=== PATIENT | female | born 1965 | race Hispanic/Latino ===

== ENCOUNTER → 2023-12-05 06:37 | Day surgery (SDC) | payer BC, SELFPAY | LOC: GI 06:37 | PROVIDERS: ATTENDING PHYSICIAN Specialist | DX: Z12.11 Encounter for screening for malignant neoplasm of colon (principal); D12.5 Benign neoplasm of sigmoid colon; D17.5 Benign lipomatous neoplasm of intra-abdominal organs; K57.30 Diverticulosis of large intestine without perforation or abscess without bleeding | CPT/HCPCS: 45385; 45380; 88305 ==

== ENCOUNTER 2024-03-24 05:06 | Inpatient (IN) | payer BC, SELFPAY ==
[2024-03-24] VITALS (19 sets, daily range): BP systolic 115–163; BP diastolic 58–119; BMI 32.4
--- NOTE | 2024-03-24 03:06 | ED.GENMED ---
History of Present Illness
General
Chief Complaint: Chest Pain
Source: patient
Exam Limitations: none
Time Seen by Provider: 03/24/24 03:06
Nursing documentation reviewed up to this point in time: agreed with
History of Present Illness
History of Present Illness:
58-year-old female history of GERD hypertension hyperlipidemia presents with shortness of breath chest pain palpitation she was indigestion earlier tonight around 9 PM she passed out woke up sweaty came here through triage with complaints of
palpitations EKG showed inferior ST segment elevation immediately brought back STEMI alert was called
Past History
Past History
ED Past Medical History: Hypercholesterolemia and Other (migraines)
ED Past Surgical History: Cholecystectomy and Orthopedic; Negative Cardiac
Social History
Tobacco: Non-smoker
Alcohol: None
Drug: None
Personal:
Living: with family
Employment: Employed
Family History
Family History: CAD
Phy Exam
Physical Exam
Physical Exam:
Physical Exam
General: 58-year-old female mild to moderate distress
Neck: No jaundice
Heart: Tachycardic
Lungs: no acute respiratory distress. clear bilaterally
Abdomen: Not tender
Neuro: alert and oriented. no focal neurological deficits
Skin: no rash
Psychiatric: well kept. interactive and cooperative
Extremities: no edema. no calf tenderness.
Scores
Heart Score for Chest Pain Patients
STEMI patient?: Yes
Course
Orders/Labs/Results
Orders:
Orders
03/24/24 02:47
ECG [Electrocardiogram (*1)] Urgent
Reason for Study: Palpitations
EKG- Treatment ONCE
03/24/24 03:02
Complete Blood Count/With Diff Urgent
Troponin I Urgent
03/24/24 03:03
Comprehensive Metabolic Panel Urgent
PTT Urgent
Prothrombin Time Urgent
Abnormal Lab Results
03/24/24
03:02
WBC 11.7 H 10^3/uL
(4.8-10.8)
MCH 31.7 H pg
(27.0-31.0)
Absolute Neuts (auto) 9.7 H 10^3/uL
(1.4-6.5)
Neutrophils % 83.0 H %
(42.2-75.2)
Lymphocytes % 12.8 L %
(20.5-51.1)
03/24/24 03:02
Vital Signs
Initial and Last Documented VS:
Initial Vital Signs
Pulse Resp BP Pulse Ox
118 24 163/103 99
03/24/24 02:58 03/24/24 02:58 03/24/24 02:58 03/24/24 02:58
Last Documented Vital Signs
Temp Pulse Resp BP Pulse Ox
97.9 F 98 23 150/86 96
03/24/24 03:04 03/24/24 03:05 03/24/24 03:05 03/24/24 03:05 03/24/24 03:05
MDM/Problems Addressed
Differential Diagnosis Includes:
VT, LV aneurysm low clinical suspicion for PE or thoracic dissection
MDM/Problems Addressed:
Chest pain palpitations syncope
Chronic conditions affecting care:
Hyperlipidemia hypertension
Acute Exacerbation and/or Progression of Chronic Illness:
Hyperlipidemia
*Pulse Oximetry
Patient hypoxic: no
*EKG
Interpreted by ED Provider?: Yes
Interpretation: abnormal
Comparison EKG: no comparison EKG present
Heart Rate: 112
Rate: tachycardiac
Rhythm: sinus
Ischemia: ST elevation
*Grinding Wheel Operator Interpretation
Rate: tachycardiac
Interpretation: abnormal
Heart Rate: 110
Rhythm: sinus
*Critical Care Note
Total Time (30-74mins, 75-104mins- exclusive of procedures): 32
Data Reviewed
Source: patient and spouse
Update Note
Update Note:
Patient chest pain-free now history concerning for ST segment elevation with syncope
ED Attending Note
-
Portions of this chart may have been created with voice recognition software.� Occasional wrong word or��sound alike� substitutions may have occurred due to the inherent limitations of voice recognition software.
Discharge Plan
Departure
Patient Disposition: Admit
Date of Disposition: 03/24/24
Time of Disposition: 03:13
Presentation/result/management discussed w/ accepting MD/DO: justin lay
Condition: Serious
Discharge Problem:
Acute non-ST segment elevation myocardial infarction
Prescriptions:
No Action
Vitamins
pantoprazole 40 MG tablet,delayed release (DR/EC)
40 mg PO DAILY Qty: 30 0RF
Rx Instructions:
Take 30 minutes prior to breakfast
Referrals:
Mike Mar MD [Family Provider] -
Interventions
Interventions:
*Risk Screen - Suicide Last Done: 03/24/24 03:05
*General Assessment Last Done: 03/24/24 03:05
*Neglect/Abuse Screening Last Done: 03/24/24 03:05
ED- Cardiac Assessment Last Done: 03/24/24 03:08
Discharge Date and Time
Print Language: OMANI
[2024-03-24 03:09] LABS: % Basophils 0.4 % (0-2); % Eosinophils 0.3 % (0-6); % Immature Granulocytes 0.3 % (0-0.5); % Lymphocytes 12.8 % (20.5-51.1); % Monocytes 3.2 % (1.7-9.3); Absolute Basophils 0.1 10^3/uL (0-0.2); Absolute Lymphocytes 1.5 10^3/uL (1.2-3.4); Absolute Monocytes 0.4 10^3/uL (0.1-0.6); Absolute Neutrophils 9.7 10^3/uL (1.4-6.5); Hematocrit 39.7 % (37.0-47.0); Hemoglobin 13.9 g/dL (12.0-16.0); Mean Corpuscular Hgb 31.7 pg (27.0-31.0); Mean Corpuscular Volume 90.4 fL (81.0-99.0); Mean Platelet Volume 9.6 fL (7.4-10.4); Nucleated Red Blood Cells % 0 %; Platelet Count 297 10^3/uL (130-400); Red Blood Cell Count 4.39 10^6/uL (4.20-5.40); Red Cell Dist. Width 11.8 % (11.5-14.5); White Blood Cell Count 11.7 10^3/uL (4.8-10.8)
[2024-03-24 03:25] LABS: APTT 27.4 Sec (23.4-35.0)
[2024-03-24 03:28] LABS: ALT (SGPT) 31 U/L (0-35); AST (SGOT) 50 U/L (14-36); Albumin 4.9 g/dl (3.5-5.0); Alkaline Phosphatase 137 U/L (38-126); Blood Urea Nitrogen 21 mg/dl (7-17); Calcium 10.6 mg/dl (8.4-10.2); Carbon Dioxide 27 mmol/L (22-30); Chloride 98 mmol/L (98-107); Estimated Creatinine Clearance 81 ml/min; Glucose 196 mg/dl (70-99); Potassium 4.2 mmol/L (3.5-5.1); Sodium 137 mmol/L (135-145); Total Bilirubin 0.6 mg/dl (0.2-1.3); Total Protein 8.4 g/dl (6.3-8.2); eGFR > 60.00
[2024-03-24 03:45] LABS: Troponin I 0.635 ng/ml
[2024-03-24 03:52] LABS: ACT-LR - POC 202 Seconds (116-155)
[2024-03-24 04:01] LABS: ACT-LR - POC 290 Seconds (116-155)
[2024-03-24 04:39] LABS: ACT-LR - POC 268 Seconds (116-155)
--- NOTE | 2024-03-24 05:09 | ITS.CL.CATH ---
Addendum entered and electronically signed by Mike Longo MD 03/24/24 11:15:
Attending Addendum:
PROCEDURES: Inadvertently dictated intervention performed on the LAD. Coronary intervention was performed on the RCA NOT the LAD. Procedures should read as follows:
1. Left Heart catheterization with coronary and single-plane left ventriculography
2. Successful stenting of the proximal to mid RCA with overlapping 2.5 x 38 mm and 3.5 x 18 mm Xience stents that were implanted at nominal pressures and post dilated to high pressures with 3.0 mm noncompliant and 3.5 mm noncompliant balloons
Original Note:
Cell Technician - Catheterization
Cardiac Catheterization
Procedure Report:
LEFT HEART CATH AND CORONARY INTERVENTION
Date of Procedure: March 24, 2024
Referring: [facility] Emergency Department
PROCEDURES:
1. Left heart catheterization with coronary and single-plane left ventriculography
2. Successful stenting from the proximal to mid LAD with overlapping 2.5 x 38 mm and 3.5 x 18 mm Xience stents that were implanted at nominal pressures and postdilated to high pressures with 3.0 mm noncompliant and 3.5 mm noncompliant balloons
INDICATION: Evolving inferior ST segment elevation myocardial infarction
ACCESS: Right common femoral artery using ultrasound guidance and micropuncture
HEMODYNAMICS (mmHg):
AO (s/d, m) : 158/91
LV (s/d) : 161/6
LVEDP : 13
CORONARY FINDINGS
Dominance: Right
LEFT MAIN: Normal
LEFT ANTERIOR DESCENDING: The LAD arises normally from the left main running in the anterior intraventricular groove. The first diagonal branch arises proximally from the LAD and has a 60% ostial stenosis and 80% stenosis in the mid diagonal. The
LAD beyond the diagonal has a long 60-70% stenosis spanning a very small second diagonal branch. The third diagonal branch has a 70% proximal narrowing. The mid-distal LAD beyond the third diagonal branch has a long 60% stenosis
CIRCUMFLEX: The circumflex is a medium caliber nondominant vessel. The mid circumflex has a complex trifurcating 70% stenosis involving the origin of the large OM1 and OM2.
RIGHT CORONARY: 100% proximally occluded.
VENTRICULOGRAPHY: Left ventriculography is performed in ALEX projection. The digital single-plane left ventricular ejection fraction is estimated at 60%
ANGIOPLASTY PROCEDURE DETAIL: Upon review of the diagnostic catheterization films the decision was made to proceed with percutaneous revascularization of the 100% occluded right coronary artery. The patient received a 180 mg loading dose of
ticagrelor in the emergency department and 324 mg of aspirin. Intravenous heparin was administered throughout the procedure and the ACT was monitored and maintained within therapeutic limits. The origin of the right coronary artery was cannulated
with a 6 [place] JR4 guide catheter and a BMW guidewire crossed the occluded segment and was advanced into the distal vessel with a moderate degree of difficulty. Balloon predilation was performed with a 2.0 x 15 mm Trek balloon. Patient developed
transient bradycardia and hypotension with temple of antegrade flow treated with IV fluids and 0.3 mg of atropine. Angiography revealed multi segment atherosclerotic disease throughout the mid RCA. Additional balloon inflations were performed
with a 2.0 x 15 mm Trek balloon. The patient experienced chest heaviness and the angiographic result was felt to be suboptimal leading to a decision to proceed with stenting of the RCA with a 2.5 x 38 mm Xience stent that was implanted at nominal
pressures then postdilated with a 3.0 mm noncompliant balloon to high pressures. A proximal 50% stenosis persisted in the RCA and the decision was made to cover the segment with a 3.5 x 18 mm Xience stent which was positioned proximal to and
overlapping with the mid RCA stent. The proximal stent and the majority of the mid RCA was postdilated with a 3.5 mm noncompliant balloon with a nice angiographic result
RADIATION SUMMARY: Fluoro Time (min): 12.8, Dose (mGy): 1125, DAP (Gy.cm2) : 93.9
CONCLUSION:
1. Acute coronary syndrome with 100% occlusion of the proximal RCA successfully treated with placement of overlapping 2.5 x 38 mm and 3.5 x 18 mm Xience stents. The distal stented segment was postdilated to high pressures with a 3.0 mm
noncompliant balloon while the proximal and mid RCA was postdilated with a 3.5 mm noncompliant balloon to high pressures with a nice angiographic result
2. Residual diffuse coronary disease involving the mid LAD, first and second diagonal branch and trifurcation in the mid circumflex involving sizable OM1 and OM 2
3. Preserved LV systolic function
RECOMMENDATIONS
1. Trend serial troponin levels
2. Check hemoglobin A1c and fasting lipid profile
3. High intensity statin therapy and aggressive blood pressure control for goal blood pressure of 130/80 or less.
4. Will consult CT surgery to consider surgical revascularization in 1 month given LAD, diagonal, and bifurcating obtuse marginal atherosclerotic disease. If the patient is not felt to be a good surgical candidate could consider percutaneous
intervention
Copy to: Dr. Mike Mar
--- NOTE | 2024-03-24 06:04 | PTCARENOTE ---
Pt admitted to IVU ~0500 from experimental machining lab manager, HR SR. Pt belongings w/ pt. at bedside. Oriented pt to unit and educated on activity restrictions. Pt states understanding. At time of admit, pt denied any CP, SOB, or lightheadedness/dizziness.
Informed to notify RN if any changes.
~0550 pt had 23 beats of sustained VT followed by two 7 beat runs. During the 23 beat run, RN at bedside. Pt states she felt dizzy/lightheaded. BP 128/84.
[2024-03-24 06:48] LABS: HDL Cholesterol 51 mg/dl; LDL Cholesterol, Calculated 108 mg/dl; Total Cholesterol 175 mg/dl (50-199); Triglyceride 81 mg/dl (10-149); Very Low Density Lipoprotein 16 mg/dl (0-30)
--- NOTE | 2024-03-24 07:30 | PTCARENOTE ---
Assumed care of pt from prev nsg shift, AAOx3 w/no c/o CP or SOB. Pt bedrest until 0740 post cardiac cath. Pt verbalized awareness of restrictions. Pt's VS stable w/HR in the 80's & BP 135/93. Pt SR on telemetry monitoring. Pt w/R femoral site
w/dressing C/D/I, w/no signs or symptoms of bleeding or hematoma. Pt given CAD booklet & new CAD medication info sheet. Emotional support provided. Pt w/call lora within reach & no addtl needs at this time. Plan of care ongoing.
[2024-03-24 09:09] LABS: Glycohemoglobin (HgbA1c) 6.3 % (4.0-5.6)
[2024-03-24] MEDS: LOW STRENGTH ASPIRIN 81 MG PO (09:31)
[2024-03-24] MEDS: COREG 6.25 MG PO ×2 (09:31→19:34)
[2024-03-24] MEDS: PROTONIX 40 MG PO (09:32)
[2024-03-24] MEDS: ZESTRIL 10 MG PO (09:32)
--- NOTE | 2024-03-24 09:56 | W.PN.CARDCBS ---
Addendum entered and electronically signed by Esdras Bird MD 03/24/24 10:39:
I saw and examined the patient.
The Mirror Finishing Machine Operator's note was reviewed and I agree with the note.
Comment: Briefly, 58-year-old woman with HTN, HLD and family history of CAD presenting with discomfort she describes as acid reflux associated with dyspnea
Was found to have acute inferior ST elevation KS and underwent PCI of the proximal right circumflex earlier this morning
No further chest discomfort and breathing is comfortable
Does report intermittent palpitations, suspect this is related to AIVR/nonsustained VT seen on telemetry
No evidence of decompensated heart failure or mechanical complication of KS based on physical exam
Trend troponin to peak
Check echo
Continue to monitor on telemetry
Medical therapy with aspirin/Brilinta, high intensity statin and beta-vijay
Will ask for CT surgery input regarding potential surgical revascularization of her residual coronary disease
Original Note:
Today's Communication / Plan
-
post PCI RCA x2
continue post KS care
serial troponin, ECHO today
Impression / Plan
-
PCP: Mike Mar MD
CDY: None, Mike Longo MD
Impression:
Acute STEMI
post PCI RCA x 2 DIXIE
residual mid LAD, diagonal and LCX/OM disease
NSVT
HTN
HLD
GERD
Migraines
h/o hernia repair
h/o back surgery
Family hx CAD
CONCLUSION:
1. Acute coronary syndrome with 100% occlusion of the proximal RCA successfully treated with placement of overlapping 2.5 x 38 mm and 3.5 x 18 mm Xience stents. The distal stented segment was postdilated to high pressures with a 3.0 mm
noncompliant balloon while the proximal and mid RCA was postdilated with a 3.5 mm noncompliant balloon to high pressures with a nice angiographic result
2. Residual diffuse coronary disease involving the mid LAD, first and second diagonal branch and trifurcation in the mid circumflex involving sizable OM1 and OM 2
3. Preserved LV systolic function
Plan:
post PCI RCA x 2, mild stretch pain
continue post KS care
tele 32b VT, and NSVT post procedure
groin stable
serial troponin to peak
Echo today
DAPT ASA/Brilinta (CM to eval cost)
continue lisinopril, new start to carvedilol
LDL 108 will increase atorvastatin to 80mg daily
Check A1c
Cardiac rehab c/s
f/u DCA 2-4 weeks at d/c
residual LAD, LCx disease will be discussed with CT surgery 1 mo after recovery
continue to monitor closely on tele 48 hours
Progress Note - Junior Business Analyst
Subjective
Date of Service: March 24, 2024
no cp, sob, mild stretch pain not worse with activity
Objective
Labs:
03/24/24 03:02
03/24/24 03:03
Labs
Hgb 13.9 g/dL (12.0-16.0) 03/24/24 03:02
Hct 39.7 % (37.0-47.0) 03/24/24 03:02
Plt Count 297 10^3/uL (130-400) 03/24/24 03:02
PT 13.0 Sec (11.4-14.6) 03/24/24 03:03
INR 1.00 03/24/24 03:03
APTT 27.4 Sec (23.4-35.0) 03/24/24 03:03
Sodium 137 mmol/L (135-145) 03/24/24 03:03
Potassium 4.2 mmol/L (3.5-5.1) 03/24/24 03:03
BUN 21 mg/dl (7-17) H 03/24/24 03:03
Creatinine 0.7 mg/dL (0.6-1.0) 03/24/24 03:03
Glucose 196 mg/dl (70-99) H 03/24/24 03:03
Troponins
03/24/24 03/24/24 03/24/24
03:02 05:56 07:19
Troponin I 0.635 H* Cancelled 44.100 H* D
03/24/24 03/24/24
11:00 17:00
Troponin I Cancelled Cancelled
Vital Signs and I&O:
Vital Signs
Temp Pulse Resp BP Pulse Ox
98.4 F 83 16 135/93 97
03/24/24 07:47 03/24/24 08:00 03/24/24 07:47 03/24/24 07:48 03/24/24 07:48
Vital Signs
Temp Pulse Resp BP Pulse Ox
98.4 F 83 16 135/93 97
03/24/24 07:47 03/24/24 08:00 03/24/24 07:47 03/24/24 07:48 03/24/24 07:48
Physical Exam
Physical Exam
NAD, AOX3
S1, S2, RRR
CTAB, non labored
SNTND bsx4
R fem site c/d/i no HT, soft
--- NOTE | 2024-03-24 10:53 | CM ---
Chart reviewed. Patient is independent of ADLS, lives with her in a 2 [address], 1 [address], 0 DME. Plan is for the patient to return home. CM to follow
--- NOTE | 2024-03-24 10:54 | CM ---
Pricing on Brillinta is $12 a month through the patient's prescription plan. The patient qualifies for the $5 a month coupon. Patients [facility] does have it in stock. Placed the brillinta coupon in the patients red discharge folder.
--- NOTE | 2024-03-24 11:57 | CARDSERVLU ---
Echocardiogram with Lumason completed after protocol screening completed. Allergies verified.
Patent IV site: __existing 20 P LFA___
IV site flushed with 0.9% NaCl pre and post administration.
Diluted bolus method utilized to enhance visualization of ventricular haddad.
Total volume given: __3.5__ mL
Patient tolerated all procedures well without complications.
--- NOTE | 2024-03-24 14:16 | CONSULT.CT ---
Consultation
-
Date/Time Consultation Requested: 03/24/2024
Date/Time Consultation Performed: 03/24/2024
Requesting Provider: Dr. Lnogo
Performing Provider: Foreign gray
Reason for Consultation: CABG eval.
Patient History
Physicians
Family Physician: Mike Mar
Inpatient Range Ecologist: Mike Longo
History of Present Illness
Patient is a 58-year-old female with a strong family history of premature coronary artery disease and history of hyperlipidemia and hypertension. She presented to [facility] ED complaining of substernal chest pressure, squeezing and
palpitations. She described a sensation of her heart racing. She felt diaphoretic and fatigued. She also complained of feeling lightheaded. Symptoms started 5 to 6 hours prior to presentation and on arrival to the ED EKG was concerning for
evolving inferior wall myocardial infarction. STEMI alert was called and patient was emergently brought to the cardiac Rn Neurology where she underwent successful stenting of the proximal mid RCA with overlapping stents. Study revealed preserved LV
systolic function. There was residual diffuse coronary disease involving the mid LAD, first and second diagonal branches and trifurcation in the mid circumflex involving a sizable OM1 and OM 2.
Cardiothoracic surgery was consulted for surgical revascularization after her recovery in approximately 1 month for residual disease.
Plan at this point is to optimize medical therapy with high intensity statin therapy and aggressive blood pressure control.
Preoperative studies will be ordered.
All studies to be reviewed by attending cardiothoracic surgeon and will discuss surgical options and timing later this week.
Past Medical History
Past Medical History: Angina, Arrhythmias, CAD, Covid-19 (Admits to COVID infection x 2, patient reports receiving COVID-vaccine x 2 along with COVID booster), GONSALVES, HTN, Hypercholesterolemia, MO and SOB
Past Surgical History
Past Surgical History: Appendectomy, Cholecystectomy, ( x 2) and Orthopedic (Lumbar fusion in 2008 at [facility]/right leg fracture 1993 treated with external fixation)
Dental History
Reports routine dental exams no current dental issues
Family History
Mother: at Age (Mother at age 67 from congestive heart failure had a myocardial infarction and history of coronary artery disease)
Father: at Age (Father at age 64 history of hypertension and hyperlipidemia)
Family Medical History: Early CAD, CAD, Hypertension and Other
Social History
Alcohol: Occasional
Drug: None
Tobacco: Non-Smoker
Personal:
Living: With Spouse
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
Covid Vaccination History:
COVID-vaccine x 2, COVID booster
Allergies
Allergy/AdvReac Type Severity Reaction Status Date / Time
tetracycline [Tetracycline] Allergy nausea Verified 03/24/24 03:05
Home Medications
�Medication �Instructions �Recorded �Confirmed �Type
atorvastatin 10 mg tablet 10 mg PO DAILY 03/24/24 03/24/24 History
ibuprofen 600 mg tablet 600 mg PO PRN PRN pain 03/24/24 03/24/24 History
lisinopril 20 mg tablet 20 mg PO DAILY 03/24/24 03/24/24 History
multivitamin 1 tab PO DAILY 03/24/24 03/24/24 History
omega-3 fatty acids PO 03/24/24 History
vitamin B complex 1 tab PO DAILY 03/24/24 03/24/24 History
Review of Systems
-
History Source: Patient
General: Reports Fatigue
HEENT: Reports No Symptoms
Respiratory: Reports SOB and GONSALVES
Cardiac: Reports Chest Pain, CAD, Palpitations and Diaphoresis
Abdomen/GI: Reports No Symptoms
: Reports No Symptoms
Musculoskeletal: Reports Arthralgias
Skin: Reports No Symptoms
Neurological: Reports Syncope, Dizzy and Weakness
Vascular: Reports No Symptoms
Physical Exam
Vital Signs
Temp 98.3 F 03/24/24 11:50
Temp route: Oral 03/24/24 11:50
Pulse 86 03/24/24 12:00
Rhythm: Normal sinus rhythm 03/24/24 08:00
Resp Rate 18 03/24/24 11:50
Blood pressure 129/73 03/24/24 11:52
Blood pressure extremity used: Left upper arm 03/24/24 11:50
Position: Lying 03/24/24 11:50
MAP (cuff-Melly Monitor) 90 03/24/24 11:52
SaO2 97 03/24/24 11:50
Oxygen Mode of Delivery Room air 03/24/24 11:50
Can the patient verbally communicate their pain? Yes 03/24/24 08:00
Actual Weight 171 lb 8.314 oz 03/24/24 03:04
Body Mass Index (BMI) 0.0 03/24/24 05:28
Labs
03/24/24 03:02
03/24/24 03:03
PT 13.0 Sec (11.4-14.6) 03/24/24 03:03
APTT 27.4 Sec (23.4-35.0) 03/24/24 03:03
Hemoglobin A1c 6.3 % (4.0-5.6) H 03/24/24 05:56
Troponin I Cancelled 03/24/24 17:00
Exam
General: Well Developed, Well Nourished, No Apparent Distress and Comfortable
HEENT: Normocephalic, Anicteric and Atraumatic
Neck: Trachea Midline
Respiratory: Clear
Cardiac: Regular Rhythm
GI: Soft, Non Tender, Non Distended and Normal Bowel Sounds
Rectal: Deferred by Provider
Skin: Warm and Dry
Neuro: Awake, Alert, Oriented and AO x 3
Extremities: Pulses (Good distal pulses bilaterally 1-2+ dorsalis pedis pulses bilaterally, 1-2+ posterior tibial pulses bilaterally, feet warm, toes warm bilaterally)
Lymph: No Lymphadenopathy
Psych: Calm
Assessment / Plan
-
Assessment: acute inferior wall myocardial infarction status post RCA stenting x 2, residual diffuse coronary artery disease involving the mid LAD, first and second diagonal branch and trifurcation in the mid circumflex involving a sizable OM1 and
OM 2. Left ventricular systolic function preserved
Hypertension
Hyperlipidemia
Strong family history of coronary artery disease
Plan:
Continue to optimize medical therapy status post STEMI and RCA stenting
Will discuss with cardiology and cardiothoracic surgery teams regarding options of revascularization.
Preoperative studies ordered
[2024-03-24 15:31] LABS: ACT-LR - POC > 397 Seconds (116-155)
[2024-03-24] MEDS: LOVENOX SC (19:26)
[2024-03-24] MEDS: BRILINTA 90 MG PO (19:34)
[2024-03-24] MEDS: LIPITOR 80 MG PO (19:34)
--- NOTE | 2024-03-24 20:44 | PTCARENOTE ---
Pt's assessment unchanged from this RN's previous nursing assessment this AM. Pt reports feeling 'slight twinges' in her chest 'now & then', but no significant chest pain or chest pressure. Pt's VS stable w/HR in the 80's, BP 116/72. Pt continues to
be NSR on telemetry monitoring. Pt's R femoral access site w/dressing C/D/I w/no signs or symptoms of hematoma or bleeding. Plan of care ongoing.
[2024-03-25] VITALS (8 sets, daily range): BP systolic 96–117; BP diastolic 52–68
[2024-03-25] MEDS: TYLENOL 650 MG PO ×2 (02:09→20:36)
[2024-03-25 02:22] LABS: Hematocrit 32.7 % (37.0-47.0); Hemoglobin 11.6 g/dL (12.0-16.0); Mean Corp Hgb Conc. 35.5 g/dL (33.0-37.0); Mean Corpuscular Hgb 31.6 pg (27.0-31.0); Mean Corpuscular Volume 89.1 fL (81.0-99.0); Mean Platelet Volume 9.6 fL (7.4-10.4); Platelet Count 243 10^3/uL (130-400); Red Blood Cell Count 3.67 10^6/uL (4.20-5.40); Red Cell Dist. Width 12.1 % (11.5-14.5); White Blood Cell Count 10.4 10^3/uL (4.8-10.8)
[2024-03-25 02:46] LABS: Blood Urea Nitrogen 22 mg/dl (7-17); Calcium 9.5 mg/dl (8.4-10.2); Carbon Dioxide 28 mmol/L (22-30); Chloride 103 mmol/L (98-107); Estimated Creatinine Clearance 81 ml/min; Glucose 126 mg/dl (70-99); Potassium 4.2 mmol/L (3.5-5.1); Sodium 136 mmol/L (135-145); eGFR > 60.00
--- NOTE | 2024-03-25 04:28 | PTCARENOTE ---
Pt. has had no complaints of chest pain/discomfort overnight, VSS, NSR on the monitor. Right groin cath site dressing CDI without drainage or hematoma, right pedal pulse palpable. Medicated for right groin discomfort with Tylenol after which pt.
fell back to sleep.
--- NOTE | 2024-03-25 09:04 | W.PN.CARDCBS ---
Addendum entered and electronically signed by Esdras Bird MD 03/25/24 13:23:
I saw and examined the patient.
The Grocery Associate's note was reviewed and I agree with the note.
Comment: Briefly, 58-year-old woman presenting with acute inferior STEMI now status post drug-eluting stent to the RCA
She is resting comfortably in the IVU, has been chest pain-free
Telemetry with normal sinus rhythm, ventricular ectopy has been quiescent overnight
No evidence of mechanical complication of NH or decompensated heart failure based on exam
Continue medical management with aspirin/Brilinta, high intensity statin, beta-vijay, COURTNEY inhibitor
Ongoing evaluation by CT surgery regarding revascularization of her residual coronary disease
Discussed cardiac rehab
Would observe overnight, tentative discharge tomorrow 03/26/2024
Original Note:
Today's Communication / Plan
-
continue post NH care
Awaiting CT surgery input after testing completed
poss d/c home in the next 24 hours
Impression / Plan
-
PCP: Mike Mar MD
CDY: None, Mike Longo MD
Impression:
Acute inferior STEMI
post PCI RCA x 2 DIXIE
residual mid LAD, diagonal and LCX/OM disease
NSVT
HTN
HLD
GERD
Migraines
h/o hernia repair
h/o back surgery
Family hx CAD
CONCLUSION:
1. Acute coronary syndrome with 100% occlusion of the proximal RCA successfully treated with placement of overlapping 2.5 x 38 mm and 3.5 x 18 mm Xience stents. The distal stented segment was postdilated to high pressures with a 3.0 mm
noncompliant balloon while the proximal and mid RCA was postdilated with a 3.5 mm noncompliant balloon to high pressures with a nice angiographic result
2. Residual diffuse coronary disease involving the mid LAD, first and second diagonal branch and trifurcation in the mid circumflex involving sizable OM1 and OM 2
3. Preserved LV systolic function
Plan:
post PCI RCA x 2, feels better today 'less twinges'
continue post NH care
tele 7b NSVT last 03/24 10am
had groin pain last night, site stable, soft
troponin peaked at 73.8
Echo EF 55-60%, mild LVH, no sig WMA, mild MR/TR
DAPT ASA/Brilinta
continue lisinopril, new start to carvedilol
LDL 108 will increase atorvastatin to 80mg daily
A1c 6.3%, pre DM education provided
Cardiac rehab c/s
f/u DCA 2-4 weeks at d/c
CT surgery consult, preop testing, carotid u/s results pending, awaiting plan for residual LAD, LCx disease
continue to monitor closely on tele another 24 hours
Progress Note - Supervisor Cabinetmaker
Subjective
Date of Service: March 25, 2024
no cp, sob, mild groin pain o/n improved with tylenol
Objective
Labs:
03/25/24 02:17
03/25/24 02:17
Labs
Hgb 11.6 g/dL (12.0-16.0) L 03/25/24 02:17
Hct 32.7 % (37.0-47.0) L 03/25/24 02:17
Plt Count 243 10^3/uL (130-400) 03/25/24 02:17
PT 13.0 Sec (11.4-14.6) 03/24/24 03:03
INR 1.00 03/24/24 03:03
APTT 27.4 Sec (23.4-35.0) 03/24/24 03:03
Sodium 136 mmol/L (135-145) 03/25/24 02:17
Potassium 4.2 mmol/L (3.5-5.1) 03/25/24 02:17
BUN 22 mg/dl (7-17) H 03/25/24 02:17
Creatinine 0.7 mg/dL (0.6-1.0) 03/25/24 02:17
Glucose 126 mg/dl (70-99) H 03/25/24 02:17
Troponins
03/24/24 03/24/24 03/24/24
03:02 05:56 07:19
Troponin I 0.635 H* Cancelled 44.100 H* D
03/24/24 03/24/24 03/24/24
11:00 13:11 17:00
Troponin I Cancelled 73.500 H* D Cancelled
03/24/24 03/24/24 03/25/24
19:00 20:12 02:17
Troponin I Cancelled 73.800 H* 56.100 H*
Vital Signs and I&O:
Vital Signs
Temp Pulse Resp BP Pulse Ox
98.5 F 71 20 113/68 95
03/25/24 07:02 03/25/24 04:00 03/25/24 07:02 03/25/24 02:10 03/25/24 07:02
Vital Signs
Temp Pulse Resp BP Pulse Ox
98.5 F 71 20 113/68 95
03/25/24 07:02 03/25/24 04:00 03/25/24 07:02 03/25/24 02:10 03/25/24 07:02
Intake & Output
03/23/24 03/24/24 03/25/24 03/26/24
06:59 06:59 06:59 06:59
Intake Total 720 / 720
Balance 720 / 720
Physical Exam
Physical Exam
NAD, AOX3
S1, S2, RRR
CTAB, non labored
SNTND bsx4
R fem site c/d/i soft, dressing removed
[2024-03-25] MEDS: LOW STRENGTH ASPIRIN 81 MG PO (09:15)
[2024-03-25] MEDS: PROTONIX 40 MG PO (09:16)
[2024-03-25] MEDS: BRILINTA 90 MG PO ×2 (09:16→20:34)
[2024-03-25] MEDS: COREG 6.25 MG PO ×2 (09:28→20:34)
--- NOTE | 2024-03-25 09:44 | PN.DE ---
Diabetes Education
- -
03/25/2024: Diabetes Education Consult
Met with MS. Jaquez at bedside for prediabetes instructions. Current A1C of 6.3%.
Pt reports Hx of Gestational Diabetes and familial hx of T2DM in both her Mom and Grandmother.
Discussed current A1C abd average blood sugar of 120. Discussed importance of being active and encouraged physical activity. Emphasized need to reduce CHO intake and sugary drinks. Reviewed outpt prediabetes classes and provided information for
registration including cost of class to pt.
All questions were answered and Pt stated that she was interested in attending the next class that is scheduled in the fall.
--- NOTE | 2024-03-25 13:36 | W.PN.UPDATE ---
Update Note
Progress Note Update
Pt seen and examined
Cath, echo, carotid reviewed
Discussed earlier with Dr Longo
Long conversation with pt regarding recent LA/PCI, and significant residual left sided disease
I agree that cabg to om/om/ Lad -distally, as well as diagonal is best senior living treatment
Risks, complications, benefits and alternatives reviewed in detail
Plan for cabg following 4+wks of post LA/stent brillinta management
Will discuss with cards about stopping Brillinta preop as well as the ?? of preadmission IV anticoag once Brillinta is stopped
Pt appears to understan all
She wishes to proceed with cabg
I have offered her an office visit to further discuss and she feels comfortable setting up all plans prior to d/c.
--- NOTE | 2024-03-25 13:43 | W.PN.UPDATE ---
Update Note
Progress Note Update
STS RISK SCORE
Procedure Type:�Isolated CABG
PERIOPERATIVE OUTCOME ESTIMATE %
Operative Mortality 0.696%
Morbidity & Mortality 4.89%
Stroke 0.689%
Renal Failure 0.906%
Reoperation 1.56%
Prolonged Ventilation 2.74%
Deep Sternal Wound Infection 0.269%
Long Hospital Stay (>14 days) 1.94%
Short Hospital Stay (<6 days)* 61.8%
Clinical Summary
Planned Surgery: Isolated CABG, Elective, First cardiovascular surgery
Demographics: 58 year old, Other, female, 77.8kg, 155cm, BMI: 32.4 kg/m�
Lab Values: Creatinine: 0.7 mg/dL, Hematocrit: 32.7%, WBC Count: 10.4 10�/�L, Platelet Count: 778619 cells/�L
Substance Abuse: Never smoker, Alcohol use: 2-7 drinks/week
Risk Factors / Comorbidities: Hypertension, Family Hx of CAD
Cardiac Status: NYHA Class II
Coronary Artery Disease: 3 vessels diseased, STEMI, OR: > 21 Days
Valve Disease: Mild MR, Mild TR
Prev. Cardiac Interv: Previous PCI: At this facility, > 6 hours
[2024-03-25] MEDS: ZESTRIL PO (15:44)
[2024-03-25] MEDS: LOVENOX 40 MG SC (17:41)
[2024-03-25] MEDS: LIPITOR 80 MG PO (17:41)
--- NOTE | 2024-03-25 18:48 | PTCARENOTE ---
Pt resting in bed today post inferior NH, c/o fatigue with SBP's @104 all day, lisinopril held. Meme Dial NP aware. Pt denies any discomfort. Telemetry shows sinus rhythm, no ectopy noted.
[2024-03-26] VITALS (7 sets, daily range): BP systolic 72–122; BP diastolic 53–87
[2024-03-26 04:48] LABS: Hematocrit 33.7 % (37.0-47.0); Hemoglobin 11.7 g/dL (12.0-16.0); Mean Corp Hgb Conc. 34.7 g/dL (33.0-37.0); Mean Corpuscular Hgb 31.5 pg (27.0-31.0); Mean Corpuscular Volume 90.8 fL (81.0-99.0); Mean Platelet Volume 9.9 fL (7.4-10.4); Platelet Count 227 10^3/uL (130-400); Red Blood Cell Count 3.71 10^6/uL (4.20-5.40); White Blood Cell Count 8.4 10^3/uL (4.8-10.8)
[2024-03-26 05:27] LABS: Blood Urea Nitrogen 22 mg/dl (7-17); Calcium 9.8 mg/dl (8.4-10.2); Carbon Dioxide 30 mmol/L (22-30); Chloride 105 mmol/L (98-107); Estimated Creatinine Clearance 81 ml/min; Glucose 116 mg/dl (70-99); Potassium 4.3 mmol/L (3.5-5.1); Sodium 140 mmol/L (135-145); eGFR > 60.00
--- NOTE | 2024-03-26 05:36 | PTCARENOTE ---
VSS; NSR on the monitor overnight. Pt. chest pain free and hoping to go home today.
[2024-03-26 06:09] LABS: Hepatitis C Antibody Negative (Negative)
--- NOTE | 2024-03-26 07:46 | W.PN.UPDATE ---
Update Note
Progress Note Update
Patient seen this AM. Consent was obtained. Patient will have a follow up appointment on 04/19, PATs will be scheduled, and surgery date will be on 04/27/[address] Coelho
--- NOTE | 2024-03-26 08:29 | W.PN.CARDCBS ---
Addendum entered and electronically signed by LALITO Frias 03/26/24 15:55:
Pt u/s showed small 7mm PSA, IR attempted thrombin injection but with manual compression of u/s probe, PSA thrombosed. She will remain on BR 3 hours, we will repeat u/s in am and if stable plan to d/c home. Discussed this with pt and Dr. Bird
and all agree with plan.
Addendum entered and electronically signed by Esdras Bird MD 03/26/24 09:57:
I saw and examined the patient.
The Credit Control Manager's note was reviewed and I agree with the note.
Comment: Briefly, 58-year-old woman presenting with epigastric discomfort found to have acute inferior STEMI
Underwent PCI of the RCA with drug-eluting stent on 03/24/2024
Has remained chest pain-free
Telemetry is unremarkable
No evidence of decompensated heart failure or mechanical complication of MT based on physical exam
Reporting some discomfort at the femoral access site, will plan for vascular ultrasound this morning to further evaluate, but right lower extremity seems to be neurovascularly intact
Patient is also concerned for low blood pressures, at times 90s/60s
Will continue Coreg at 6.25 twice daily
Plan to cut lisinopril dose to 2.5 mg daily
Dual antiplatelet with aspirin/Brilinta and high intensity statin
Evaluated by CT surgery, plan for CABG in April to address residual LAD and left circumflex disease
Tentative discharge later today
Original Note:
Today's Communication / Plan
-
Groin u/s today to r/o PSA
Decrease lisinopril
CABG scheduled for 04/27, continue DAPT until 04/23 stop brilinta, continue Aspirin
Impression / Plan
-
PCP: Mike Mar MD
CDY: None, Mike Longo MD
Impression:
Acute inferior STEMI
post PCI RCA x 2 DIXIE
residual mid LAD, diagonal and LCX/OM disease
NSVT
HTN
HLD
GERD
Migraines
h/o hernia repair
h/o back surgery
Family hx CAD
CONCLUSION:
1. Acute coronary syndrome with 100% occlusion of the proximal RCA successfully treated with placement of overlapping 2.5 x 38 mm and 3.5 x 18 mm Xience stents. The distal stented segment was postdilated to high pressures with a 3.0 mm
noncompliant balloon while the proximal and mid RCA was postdilated with a 3.5 mm noncompliant balloon to high pressures with a nice angiographic result
2. Residual diffuse coronary disease involving the mid LAD, first and second diagonal branch and trifurcation in the mid circumflex involving sizable OM1 and OM 2
3. Preserved LV systolic function
Plan:
post PCI RCA x 2, feels good today, no cp
continue post MT care
tele no further NSVT seen on monitor
groin turpentine distiller, soft will check u/s to make sure no PSA
troponin peaked at 73.8
Echo EF 55-60%, mild LVH, no sig WMA, mild MR/TR
DAPT ASA/Brilinta
BP running low will decrease lisinopril to 5mg daily, continue carvedilol 6.25mg bid
LDL 108 will increase atorvastatin to 80mg daily
A1c 6.3%, pre DM education provided
Cardiac rehab c/s to begin after CT surgery
Plan for CABG 04/[address] Coelho, will stop Brilinta on 04/23 (5 days prior to surgery), continue ASA including day of surgery
CT office visit 04/19 with PAT's
f/u DCA 04/21 prior to surgery
if groin u/s neg plan for d/c home this afternoon
Progress Note - Medical Recruiter
Subjective
Date of Service: March 26, 2024
no cp, sob, groin still
Objective
Labs:
03/26/24 04:30
03/26/24 04:30
Labs
Hgb 11.7 g/dL (12.0-16.0) L 03/26/24 04:30
Hct 33.7 % (37.0-47.0) L 03/26/24 04:30
Plt Count 227 10^3/uL (130-400) 03/26/24 04:30
PT 13.0 Sec (11.4-14.6) 03/24/24 03:03
INR 1.00 03/24/24 03:03
APTT 27.4 Sec (23.4-35.0) 03/24/24 03:03
Sodium 140 mmol/L (135-145) 03/26/24 04:30
Potassium 4.3 mmol/L (3.5-5.1) 03/26/24 04:30
BUN 22 mg/dl (7-17) H 03/26/24 04:30
Creatinine 0.7 mg/dL (0.6-1.0) 03/26/24 04:30
Glucose 116 mg/dl (70-99) H 03/26/24 04:30
Troponins
03/24/24 03/24/24 03/24/24
03:02 05:56 07:19
Troponin I 0.635 H* Cancelled 44.100 H* D
03/24/24 03/24/24 03/24/24
11:00 13:11 17:00
Troponin I Cancelled 73.500 H* D Cancelled
03/24/24 03/24/24 03/25/24
19:00 20:12 02:17
Troponin I Cancelled 73.800 H* 56.100 H*
Vital Signs and I&O:
Vital Signs
Temp Pulse Resp BP Pulse Ox
98.8 F 74 20 110/53 100
03/26/24 07:40 03/26/24 04:24 03/26/24 07:40 03/26/24 04:24 03/26/24 07:40
Vital Signs
Temp Pulse Resp BP Pulse Ox
98.8 F 74 20 110/53 100
03/26/24 07:40 03/26/24 04:24 03/26/24 07:40 03/26/24 04:24 03/26/24 07:40
Intake & Output
03/24/24 03/25/24 03/26/24 03/27/24
06:59 06:59 06:59 06:59
Intake Total 720 / 720 240 / 240
Balance 720 / 720 240 / 240
Physical Exam
Physical Exam
NAD, AOX3
S1, S2, RRR
CTAB, non labored
SNTND bsx4
R fem site slight ecchymosis, mildly tender to palpation, slight firmness
[2024-03-26] MEDS: LOW STRENGTH ASPIRIN 81 MG PO (09:56)
[2024-03-26] MEDS: BRILINTA 90 MG PO ×2 (09:57→21:17)
[2024-03-26] MEDS: COREG 6.25 MG PO ×2 (09:57→21:17)
[2024-03-26] MEDS: PROTONIX 40 MG PO (09:57)
[2024-03-26] MEDS: ZESTRIL 5 MG PO (09:57)
--- NOTE | 2024-03-26 11:32 | CM ---
I called patient's [facility] and the Brilinta will be in later today.
--- NOTE | 2024-03-26 15:36 | W.PN.UPDATE ---
Update Note
Progress Note Update
- Attempted US guided thrombin injection of R groin PSA. Small 5 mm sac. We were able to get needle into the sac however no blood return. I suspect US guided compression helped to thrombose the PSA. Only a trickle of flow within the neck on final
images.
[2024-03-26] MEDS: LIPITOR 80 MG PO (18:38)
[2024-03-26] MEDS: LOVENOX 40 MG SC (18:38)
--- NOTE | 2024-03-26 19:49 | PTCARENOTE ---
Pt had U/S of right groin showing hematoma and 7mm pseudoaneurysm. Pt went to IRAD, no thrombin injection done , hematoma resolved with manual pressure, right groin site now soft and non tender. Pt kept on bedrest for 3 hours.
[2024-03-26] MEDS: DILAUDID 0.25 MG IV (21:12)
[2024-03-26] MEDS: FLUSH (NSS) 2 FLUSH IV (21:12)
[2024-03-26] MEDS: FLEXERIL 10 MG PO (21:49)
--- NOTE | 2024-03-27 03:34 | PTCARENOTE ---
Rec'd pt AAOx3 w/no c/o CP or SOB, however pt was c/o low back pain, which she initially rated at a 3-4/10 & reported as 'tolerable'. At approx 2039, pt was found to be pacing in her room, tearful, stating her pain was now a 7-8/10 w/back spasms &
'getting worse'. Pt asked for 'something other than Tylenol'. Pt stated she 'didn't get any relief from the Tylenol'. This RN contacted the cupola melter helper information resource consultant & spoke w/CT surgery MICHAEL, Cody Benedict. Orders rec'd for a stat 1X dose of IV Dilaudid for
the pt & PRN PO Flexeril. Meds administered to pt as ordered w/very good relief. 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 VS stable w/HR in the
70's-80's, most recent BP 110/67. Plan of care ongoing.
[2024-03-27 03:53] VITALS: BP 107/63
[2024-03-27 04:45] LABS: Hematocrit 30.2 % (37.0-47.0); Hemoglobin 10.5 g/dL (12.0-16.0); Mean Corp Hgb Conc. 34.8 g/dL (33.0-37.0); Mean Corpuscular Hgb 31.3 pg (27.0-31.0); Mean Corpuscular Volume 89.9 fL (81.0-99.0); Platelet Count 213 10^3/uL (130-400); Red Blood Cell Count 3.36 10^6/uL (4.20-5.40); White Blood Cell Count 8.4 10^3/uL (4.8-10.8)
[2024-03-27 04:57] LABS: Blood Urea Nitrogen 22 mg/dl (7-17); Calcium 9.2 mg/dl (8.4-10.2); Carbon Dioxide 27 mmol/L (22-30); Chloride 106 mmol/L (98-107); Estimated Creatinine Clearance 81 ml/min; Glucose 120 mg/dl (70-99); Potassium 4.2 mmol/L (3.5-5.1); Sodium 139 mmol/L (135-145); eGFR > 60.00
[2024-03-27 07:01] VITALS: BP 117/64
[2024-03-27] MEDS: LOW STRENGTH ASPIRIN 81 MG PO (09:05)
[2024-03-27] MEDS: ZESTRIL 5 MG PO (09:05)
[2024-03-27] MEDS: PROTONIX 40 MG PO (09:05)
[2024-03-27] MEDS: FLUSH (NSS) 1 FLUSH IV (09:05)
[2024-03-27] MEDS: COREG 6.25 MG PO (09:05)
[2024-03-27] MEDS: BRILINTA 90 MG PO (09:05)
--- NOTE | 2024-03-27 10:25 | PTCARENOTE ---
Received patient this morning resting in bed, slept later and feels much better now. Right groin is open to air, no edema noted and patient states it feels much better. Patient is ordered a repeat ultrasound of the right groin this morning.
[2024-03-27 11:38] VITALS: BP 107/60
--- NOTE | 2024-03-27 13:53 | W.PN.CARDCBS ---
Today's Communication / Plan
-
Stable for discharge from my perspective
Outpatient cardiology and CT surgery follow-up has been arranged
Impression / Plan
-
PCP: Mike Mar MD
CDY: None, Mike Longo MD
Impression:
Acute inferior STEMI
post PCI RCA x 2 DIXIE
residual mid LAD, diagonal and LCX/OM disease
NSVT
HTN
HLD
GERD
Migraines
h/o hernia repair
h/o back surgery
Family hx CAD
CONCLUSION:
1. Acute coronary syndrome with 100% occlusion of the proximal RCA successfully treated with placement of overlapping 2.5 x 38 mm and 3.5 x 18 mm Xience stents. The distal stented segment was postdilated to high pressures with a 3.0 mm
noncompliant balloon while the proximal and mid RCA was postdilated with a 3.5 mm noncompliant balloon to high pressures with a nice angiographic result
2. Residual diffuse coronary disease involving the mid LAD, first and second diagonal branch and trifurcation in the mid circumflex involving sizable OM1 and OM 2
3. Preserved LV systolic function
Plan:
post PCI RCA x 2, feels good today, no cp
continue post MD care
tele no further NSVT seen on monitor
PSA thrombosed, stable on repeat US
troponin peaked at 73.8
Echo EF 55-60%, mild LVH, no sig WMA, mild MR/TR
DAPT ASA/Brilinta
BP running low will decrease lisinopril to 5mg daily, continue carvedilol 6.25mg bid
LDL 108 will increase atorvastatin to 80mg daily
A1c 6.3%, pre DM education provided
Cardiac rehab c/s to begin after CT surgery
Plan for CABG 04/[address] Coelho, will stop Brilinta on 04/23 (5 days prior to surgery), continue ASA including day of surgery
CT office visit 04/19 with PAT's
DCA follow up arranged
Progress Note - Supervisor Functional Testing
Subjective
Date of Service: March 27, 2024
No acute overnight events. Groin pain has resolved following manual compression of pseudoaneurysm yesterday. No chest discomfort or shortness of breath. Normal sinus rhythm on telemetry.
Objective
Labs:
03/27/24 04:34
03/27/24 03:59
Labs
Hgb 10.5 g/dL (12.0-16.0) L 03/27/24 04:34
Hct 30.2 % (37.0-47.0) L 03/27/24 04:34
Plt Count 213 10^3/uL (130-400) 03/27/24 04:34
PT 13.0 Sec (11.4-14.6) 03/24/24 03:03
INR 1.00 03/24/24 03:03
APTT 27.4 Sec (23.4-35.0) 03/24/24 03:03
Sodium 139 mmol/L (135-145) 03/27/24 03:59
Potassium 4.2 mmol/L (3.5-5.1) 03/27/24 03:59
BUN 22 mg/dl (7-17) H 03/27/24 03:59
Creatinine 0.7 mg/dL (0.6-1.0) 03/27/24 03:59
Glucose 120 mg/dl (70-99) H 03/27/24 03:59
Troponins
03/24/24 03/24/24 03/24/24
13:11 19:00 20:12
Troponin I 73.500 H* D Cancelled 73.800 H*
03/25/24
02:17
Troponin I 56.100 H*
Vital Signs and I&O:
Vital Signs
Temp Pulse Resp BP Pulse Ox
98.4 F 75 18 107/60 98
03/27/24 11:40 03/27/24 11:38 03/27/24 11:40 03/27/24 11:38 03/27/24 11:40
Vital Signs
Temp Pulse Resp BP Pulse Ox
98.4 F 75 18 107/60 98
03/27/24 11:40 03/27/24 11:38 03/27/24 11:40 03/27/24 11:38 03/27/24 11:40
Intake & Output
03/25/24 03/26/24 03/27/24 03/28/24
06:59 06:59 06:59 06:59
Intake Total 720 / 720 240 / 240 900 / 900
Balance 720 / 720 240 / 240 900 / 900
Physical Exam
Physical Exam
Gen: NAD, AAOx3
HEENT: NC/AT, sclera anicteric
Neck: No JVD
CV: RRR, NL s1/s2, no M/R/G
Lungs: CTAB
Abd: S/ND
Ext: No LE edema, right femoral cath site with small hematoma but soft and right lower extremity neurovascularly intact
Skin: Warm, dry
Neuro: Non-focal
--- NOTE | 2024-03-27 14:14 | PTCARENOTE ---
Patient had right groin ultrasound this morning which is stable and ok for discharge.
--- NOTE | 2024-03-27 14:49 | PTCARENOTE ---
Reviewed discharge instructions and restrictions with the patient and she states her understanding. She is aware of follow up appointments, new prescriptions and changes to her current medications. Patient discharged home with her .
== END 2024-03-27 14:30 | disposition home or self-care (01) | DRG 322 ==
LOC: IVU 05:06
PROVIDERS: Nurse Practitioner Adult Health; ADMITTING PHYSICIAN Internal Medicine Interventional Cardiology; EMERGENCY PHYSICIAN Emergency Medicine; FAMILY PHYSICIAN Family Medicine; OTHER PHYSICIAN Thoracic Surgery (Cardiothoracic Vascular Surgery)
PROC: 027035Z Dilation of Coronary Artery, One Artery with Two Drug-eluting Intraluminal Devices, Percutaneous Approach (ICD-10-PCS; 2024-03-24)
PROC: B2151ZZ Fluoroscopy of Left Heart using Low Osmolar Contrast (ICD-10-PCS; 2024-03-24)
PROC: B2111ZZ Fluoroscopy of Multiple Coronary Arteries using Low Osmolar Contrast (ICD-10-PCS; 2024-03-24)
PROC: 4A023N7 Measurement of Cardiac Sampling and Pressure, Left Heart, Percutaneous Approach (ICD-10-PCS; 2024-03-24)
DX: I21.19 ST elevation (STEMI) myocardial infarction involving other coronary artery of inferior wall (principal); I47.20 Ventricular tachycardia, unspecified; I10 Essential (primary) hypertension; G43.909 Migraine, unspecified, not intractable, without status migrainosus; R73.03 Prediabetes; I25.10 Atherosclerotic heart disease of native coronary artery without angina pectoris; K21.9 Gastro-esophageal reflux disease without esophagitis; I72.4 Aneurysm of artery of lower extremity; E78.00 Pure hypercholesterolemia, unspecified; Z82.49 Family history of ischemic heart disease and other diseases of the circulatory system; Z86.16 Personal history of COVID-19; Z98.1 Arthrodesis status; Z88.1 Allergy status to other antibiotic agents
CPT/HCPCS: 36002; 76942; 80048; 80053; 80061; 83036; 84484; 85025; 85027; 85347; 85610; 85730; 86803; 93005; 93307; 93458; 93880; 93926; 99291; C1725; C1760; C1769; C1874; C1894; C9600; Q9957

== ENCOUNTER 2024-04-07 19:33 | Emergency (ER) | payer BC, SELFPAY ==
[2024-04-07 19:39] VITALS: BP 120/85
[2024-04-07 20:10] VITALS: BMI 33.8
[2024-04-07 20:48] LABS: % Basophils 0.5 % (0-2); % Eosinophils 3.7 % (0-6); % Immature Granulocytes 0.3 % (0-0.5); % Lymphocytes 27.5 % (20.5-51.1); % Monocytes 5.9 % (1.7-9.3); % Neutrophils 62.1 % (42.2-75.2); Absolute Eosinophils 0.3 10^3/uL (0-0.7); Absolute Lymphocytes 2.4 10^3/uL (1.2-3.4); Absolute Monocytes 0.5 10^3/uL (0.1-0.6); Absolute Neutrophils 5.4 10^3/uL (1.4-6.5); Hematocrit 33.5 % (37.0-47.0); Hemoglobin 11.9 g/dL (12.0-16.0); Mean Corp Hgb Conc. 35.5 g/dL (33.0-37.0); Mean Corpuscular Hgb 31.4 pg (27.0-31.0); Mean Corpuscular Volume 88.4 fL (81.0-99.0); Mean Platelet Volume 9.3 fL (7.4-10.4); Nucleated Red Blood Cells % 0 %; Platelet Count 330 10^3/uL (130-400); Red Blood Cell Count 3.79 10^6/uL (4.20-5.40); Red Cell Dist. Width 11.9 % (11.5-14.5); White Blood Cell Count 8.7 10^3/uL (4.8-10.8)
[2024-04-07 21:01] LABS: ALT (SGPT) 26 U/L (0-35); AST (SGOT) 32 U/L (14-36); Albumin 4.4 g/dl (3.5-5.0); Alkaline Phosphatase 110 U/L (38-126); Blood Urea Nitrogen 17 mg/dl (7-17); Calcium 10.2 mg/dl (8.4-10.2); Carbon Dioxide 24 mmol/L (22-30); Chloride 105 mmol/L (98-107); Glucose 147 mg/dl (70-99); Potassium 4.2 mmol/L (3.5-5.1); Sodium 138 mmol/L (135-145); Total Bilirubin 0.7 mg/dl (0.2-1.3); Total Protein 7.5 g/dl (6.3-8.2); eGFR > 60.00
[2024-04-07 21:32] LABS: TSH 2.81 uIU/ml (0.47-4.68)
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
[2024-04-07 21:44] VITALS: BP 152/94
[2024-04-07 22:00] VITALS: BP 141/73
== END 2024-04-07 22:41 | disposition home or self-care (01) ==
LOC: EMR 19:33
PROVIDERS: EMERGENCY PHYSICIAN Emergency Medicine; FAMILY PHYSICIAN Family Medicine
DX: R00.2 Palpitations (principal); R03.0 Elevated blood-pressure reading, without diagnosis of hypertension; I25.10 Atherosclerotic heart disease of native coronary artery without angina pectoris; E78.00 Pure hypercholesterolemia, unspecified; G43.909 Migraine, unspecified, not intractable, without status migrainosus; I25.2 Old myocardial infarction; Z90.49 Acquired absence of other specified parts of digestive tract; Z88.1 Allergy status to other antibiotic agents
CPT/HCPCS: 99283; 80053; 84443; 85025; 93005

== ENCOUNTER 2024-04-27 05:08 | Inpatient (IN) | payer OTHER, SELFPAY ==
[2024-04-21 11:28] VITALS: BMI 32.9
[2024-04-21 12:17] LABS: % Basophils 0.6 % (0-2); % Eosinophils 3.8 % (0-6); % Immature Granulocytes 0.3 % (0-0.5); % Lymphocytes 29.5 % (20.5-51.1); % Monocytes 8.3 % (1.7-9.3); % Neutrophils 57.5 % (42.2-75.2); Absolute Eosinophils 0.3 10^3/uL (0-0.7); Absolute Lymphocytes 2.1 10^3/uL (1.2-3.4); Absolute Monocytes 0.6 10^3/uL (0.1-0.6); Hematocrit 36.7 % (37.0-47.0); Hemoglobin 12.3 g/dL (12.0-16.0); Mean Corp Hgb Conc. 33.5 g/dL (33.0-37.0); Mean Corpuscular Hgb 31.1 pg (27.0-31.0); Mean Corpuscular Volume 92.9 fL (81.0-99.0); Mean Platelet Volume 10.1 fL (7.4-10.4); Nucleated Red Blood Cells % 0 %; Platelet Count 233 10^3/uL (130-400); Red Blood Cell Count 3.95 10^6/uL (4.20-5.40); Red Cell Dist. Width 11.9 % (11.5-14.5)
[2024-04-21 12:18] LABS: Urine Albumin Negative (Neg - Trace); Urine Bilirubin Negative (Negative); Urine Character Clear (Clear); Urine Color Yellow; Urine Glucose Negative (Negative); Urine Ketone Negative (Negative); Urine Leukocyte Negative (Negative); Urine Nitrite Negative (Negative); Urine Occult Blood Negative (Negative); Urine Specific Gravity 1.005 (<1.030); Urine Urobilinogen Negative (Neg - 1+)
[2024-04-21 12:26] LABS: PT 14.2 Sec (11.4-14.6)
[2024-04-21 12:27] LABS: APTT 31.3 Sec (23.4-35.0)
--- NOTE | 2024-04-21 12:38 | CM ---
Chart reviewed. Met with the patient in PAT. Patient is still working, independent of ADLS, lives with her in a 2 STH, 1 LAVON, 0 DME. Patient expressed concerns about lying flat with her chronic back pain, 2/2 back surgery. Patient is
going to bring her own ice pack. Reviewed preoperative and postoperative instructions and restrictions, along with showering guidelines. Gave patient 2 soaps. Patient is agreeable to a home visit by CT Transitional RN. Plan is for the patient to
return home with CT Transitional RN.
[2024-04-21 12:43] LABS: ALT (SGPT) 30 U/L (0-35); AST (SGOT) 29 U/L (14-36); Albumin 4.6 g/dl (3.5-5.0); Alkaline Phosphatase 103 U/L (38-126); Blood Urea Nitrogen 12 mg/dl (7-17); Calcium 10.2 mg/dl (8.4-10.2); Carbon Dioxide 26 mmol/L (22-30); Chloride 103 mmol/L (98-107); Direct Bilirubin 0.2 mg/dl (0.0-0.4); Estimated Creatinine Clearance 78 ml/min; Glucose 103 mg/dl (70-99); Sodium 139 mmol/L (135-145); Total Bilirubin 0.8 mg/dl (0.2-1.3); Total Protein 7.7 g/dl (6.3-8.2); eGFR > 60.00
[2024-04-27] VITALS (16 sets, daily range): BP systolic 77–132; BP diastolic 52–83; BMI 32.2
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
[2024-04-27] MEDS: BACTROBAN 2% OINTMENT 1 APPLIC NASAL ×2 (05:39→19:53)
[2024-04-27] MEDS: PROTONIX 40 MG PO (05:39)
[2024-04-27] MEDS: MAGNESIUM OXIDE 500 MG PO (05:39)
[2024-04-27] MEDS: LOPRESSOR 25 MG PO (05:39)
--- NOTE | 2024-04-27 05:48 | PTCARENOTE ---
Pt admitted to room 2265. Pt confirmed NPO status since midnight and 2 CHG soap showers at home. Weight and VS obtained. Pt clipped and cleaned w/ CHG wipes. Admission questions completed. Home medications confirmed. Pt oriented to room. Pt
introduced to the IS. Call lora within reach.
--- NOTE | 2024-04-27 06:36 | W.CVOR.SURPR ---
CVOR Surgeon Immed Pre Op
-
I have examined this patient prior to performance of the scheduled procedure.
The patient's condition is unchanged from the time of the dictated/written History and
Physical and the patient is able to undergo the scheduled procedure.
[2024-04-27 07:53] LABS: ACT+ - POC 87 Seconds (82-134)
[2024-04-27 07:57] LABS: B.E. - POC -2.7 mmol/L; Glucose - POC 125 mg/dl (65-99); HCO3 - POC 23 mmol/L (21-29); Hematocrit - POC 34 % PCV (37-47); Hemodilution- POC Yes; Hemoglobin Calculated - POC 11.5; Ionized Calcium - POC 1.24 mmol/L (1.12-1.27); PCO2 - POC 41 mmHg (35-45); PO2 - POC 440 mmHg (80-100); POC Comment PRE; Potassium - POC 3.8 mmol/L (3.6-5.0); Sodium - POC 144 mmol/L (135-145); pH - POC 7.35 (7.35-7.45)
[2024-04-27 08:24] LABS: Urine Albumin Negative (Neg - Trace); Urine Bilirubin Negative (Negative); Urine Character Clear (Clear); Urine Color Yellow; Urine Glucose Negative (Negative); Urine Ketone Negative (Negative); Urine Leukocyte Negative (Negative); Urine Nitrite Negative (Negative); Urine Occult Blood Trace (Negative); Urine Specific Gravity 1.005 (<1.030); Urine Urobilinogen Negative (Neg - 1+)
[2024-04-27 08:36] LABS: Urine White Cell None Seen /HPF (0-5)
--- NOTE | 2024-04-27 08:56 | CM ---
pt in OR today, cm to follow.
[2024-04-27 10:52] LABS: Glucose - POC 143 mg/dl (65-99); HCO3 - POC 26 mmol/L (21-29); Hematocrit - POC 22 % PCV (37-47); Hemodilution- POC Yes; Hemoglobin Calculated - POC 7.6; Ionized Calcium - POC 0.99 mmol/L (1.12-1.27); PCO2 - POC 34 mmHg (35-45); PO2 - POC 367 mmHg (80-100); POC Comment CPB; Sodium - POC 142 mmol/L (135-145)
[2024-04-27 11:14] LABS: B.E. - POC 1.7 mmol/L; Glucose - POC 165 mg/dl (65-99); HCO3 - POC 26 mmol/L (21-29); Hematocrit - POC 25 % PCV (37-47); Hemodilution- POC Yes; Hemoglobin Calculated - POC 8.6; PCO2 - POC 40 mmHg (35-45); PO2 - POC 442 mmHg (80-100); POC Comment WARM; Potassium - POC 3.8 mmol/L (3.6-5.0); Sodium - POC 143 mmol/L (135-145); pH - POC 7.43 (7.35-7.45)
[2024-04-27 11:42] LABS: ACT+ - POC 104 Seconds (82-134)
[2024-04-27 11:44] LABS: B.E. - POC -2.4 mmol/L; Glucose - POC 117 mg/dl (65-99); HCO3 - POC 23 mmol/L (21-29); Hematocrit - POC 25 % PCV (37-47); Hemodilution- POC Yes; Hemoglobin Calculated - POC 8.6; O2 Saturation %Calculated-POC 99.4 5 (92-96); PCO2 - POC 41 mmHg (35-45); PO2 - POC 168 mmHg (80-100); POC Comment POST; Potassium - POC 2.8 mmol/L (3.6-5.0); Sodium - POC 145 mmol/L (135-145); pH - POC 7.36 (7.35-7.45)
[2024-04-27 11:55] LABS: B.E. - POC -4.6 mmol/L; Glucose - POC 90 mg/dl (65-99); HCO3 - POC 21 mmol/L (21-29); Hematocrit - POC 24 % PCV (37-47); Hemodilution- POC Yes; Hemoglobin Calculated - POC 8.3; O2 Saturation %Calculated-POC 99.1 5 (92-96); PCO2 - POC 38 mmHg (35-45); PO2 - POC 142 mmHg (80-100); POC Comment POST; Potassium - POC 2.8 mmol/L (3.6-5.0); Sodium - POC 146 mmol/L (135-145); pH - POC 7.35 (7.35-7.45)
--- NOTE | 2024-04-27 12:11 | W.PN.CT.SURG ---
CT Surgery Operative Note
-
Pre-op Diagnosis: severe CAD
recent stemi with pci to RCA
Post-op Diagnosis: Same
Procedure: Cabg x 4
melgar - d2/lad
yhaaira- om/om
on pump
RSF
Primary Surgeon: Meliton
Assisting Surgeons: Foreign
Specimen: None
Cultures: None
Complications / Blood Loss: None
Findings: Buzz with preserved EF pre and post revasc, no new wma
good conduits
Severe cad- om's with good intraluminal diameter but severe cad
lad/diag small
[2024-04-27 12:41] LABS: Glucose - Point of Care 76 mg/dl (70-99)
[2024-04-27] MEDS: DILAUDID 0.5 MG IV ×2 (12:49→23:35)
[2024-04-27 12:50] LABS: Hematocrit 27.8 % (37.0-47.0)
--- NOTE | 2024-04-27 12:50 | W.PN.UPDATE ---
Update Note
Progress Note Update
58-year-old female was electively admitted on 04/27/2024 for CABG due to recent STEMI/triple-vessel coronary disease with recent drug-eluting stent to RCA
IV fluids: 1300
U.O.:� 650
UF:� 900
Blood:� none
Wires:� V-wires
Inotropes:� none
Pressors:� none
Sedatives:� Precedex
�
NEURO: sedated on Precedex, pupils +2mm B/L
RESP: #8OT @24cm> 550/60%/14/5. Lungs clear B/L. 1 mediastinal (35cc on arrival) and R/L pleural (35cc on arrival) chest tubes to -20cm suction. Sanguineous drainage
CV: RRR +S1, S2, no S3, no�rub, no murmur. Dermabond to median sternotomy. RIJ w/slick
ABD: round, soft, no BS
EXT: no edema, +2/4 DP pulses B/L, no femoral bruit, left radial A-line intact
: Irwin with clear yellow urine
�
A/P: POD #0 s/p CABG x 4 BARBA-LAD & Diag in sequence. Free CHERELLE Y'd from BARBA-LCx & OM
VIMAL: EF�50-55%. Trace TR, mild-moderate MR. Small PFO with L>R shunt
- wean and extubate
# CAD w/recent STEMI & DIXIE>RCA (03/24/24)
- start Plavix tonight per Dr. Coelho (was on Brillinta @ home)
-will require ASA, statin, beta-vijay, ACEI
�
# acute surgical blood loss anemia-expected
- trend CBC
�
�
# Pre-diabetes (A1C 6.3)
- insulin infusion x 24h
- may need correctional SSI after indulin infusion completed
�
[2024-04-27 12:53] LABS: B.E. -3.8 mmol/L; HCO3 20.4 mmol/L (21-28); O2 Saturation % 99.1 % (94-98); PCO2 33 mmHg (32-35); PO2 138 mmHg (83-108); Potassium 4.1 mMOL/L (3.5-5.1); Sodium 141 mMOL/L (136-145)
--- NOTE | 2024-04-27 12:56 | PTCARENOTE ---
Received pt from [facility] at 1230; pt intubated and sedated; NSR on monitor and vSS; RIJ Cordis/SLIC, Left A-line and PIV x1 all lines leveled and zeroed; Levo, Insulin and Precedex infusing see flow sheet for details; Lungs diminished; SIMV
60%/550/14/5, ET tube 8@22 lip; CT x3 to -20 wall suction no air leak and no crepitus noted; hypoactive bowel sounds; Irwin catheter draining clear yellow urine; palpable pulses throughout; no edema noted; all surgical sites C/D/I; see nursing
documentation for further details.
--- NOTE | 2024-04-27 13:04 | W.PN.CARDCBS ---
Addendum entered and electronically signed by Dave Mcgee DO 04/27/24 13:31:
I saw and examined the patient.
The Office Assistance's note was reviewed and I agree with the note.
Comment:
Plan:
Cont post op care
Cont s/p CABGx4 BARBA-D2/LAD, CHERELLE-OM/OM, on pump 04/27/24
Wean vent as per protocol.
Was on ASA, Brilinta preop given recent STEMI with RCA PCI. Resume DAPT post op once ok per surgery
Discussed with nursing
Original Note:
Today's Communication / Plan
-
continue post op care
Impression / Plan
-
Primary Salt Refiner: Dr. Longo
Assessment:
CAD with inferior STEMI s/p PCI RCA x 2 DIXIE 03/24/24 with residual mid LAD, diagonal and LCX/OM disease by cath, now s/p CABGx4 BARBA-D2/LAD, CHERELLE-OM/OM, on pump 04/27/24
NSVT
HTN
HLD
GERD
Migraines
h/o hernia repair
h/o back surgery
Family hx CAD
ECHO 03/24/2024: EF 55 to 60%, mild concentric LVH, mild MR, mild TR, PAP 22 mmHg
Plan:
-s/p CABGx4 BARBA-D2/LAD, CHERELLE-OM/OM, on pump 04/27/24
-intubated, sedated. beginning to awaken
-on greg hugger
-off pressors
-post op EKG SR with evidence of prior inferior infarct
-hgb pending post op
-continue post op care
-was on asa, brilinta preop given recent STEMI with RCA PCI. will need to resume DAPT post op when ok per surgery
-was on coreg 6.25mg BID, lisinopril 5mg daily, lipitor 80mg QPM
-d/w nursing
Progress Note - Salt Refiner
Subjective
Date of Service: April 27, 2024
intubated, sedated.
Objective
Labs:
Labs
Hgb 12.3 g/dL (12.0-16.0) 04/21/24 11:40
Hct 36.7 % (37.0-47.0) L 04/21/24 11:40
Plt Count 233 10^3/uL (130-400) 04/21/24 11:40
PT 14.2 Sec (11.4-14.6) 04/21/24 11:40
INR 1.10 04/21/24 11:40
APTT 31.3 Sec (23.4-35.0) 04/21/24 11:40
Sodium 139 mmol/L (135-145) 04/21/24 11:40
Potassium 4.0 mmol/L (3.5-5.1) 04/21/24 11:40
BUN 12 mg/dl (7-17) 04/21/24 11:40
Creatinine 0.7 mg/dL (0.6-1.0) 04/21/24 11:40
Glucose 103 mg/dl (70-99) H 04/21/24 11:40
Vital Signs and I&O:
Vital Signs
Temp Pulse Resp BP Pulse Ox
95.6 F L 67 14 132/69 100
04/27/24 13:02 04/27/24 13:00 04/27/24 13:02 04/27/24 05:25 04/27/24 13:02
Vital Signs
Temp Pulse Resp BP Pulse Ox
95.6 F L 67 14 132/69 100
04/27/24 13:02 04/27/24 13:00 04/27/24 13:02 04/27/24 05:25 04/27/24 13:02
Intake & Output
04/25/24 04/26/24 04/27/24 04/28/24
07:59 07:59 07:59 07:59
Intake Total 29.4 / 29.4
Output Total 300 / 300
Balance -270.6 / -270.6
Physical Exam
Physical Exam
GEN: No distress, intubated, sedated. opening eyes
HEENT: supple, anicteric, mmm
LUNGS: CTA B/L, no wheezes/rales
CV: Reg, S1/S2, no murmur
EXT: No cyanosis, clubbing, edema
NEURO: sedated
SKIN: Warm, pink, dry. No rash. Sternotomy incision c/d/i. CTs in place. temp wire in place
[2024-04-27 13:05] LABS: INR 1.61
[2024-04-27 13:06] LABS: APTT 31.8 Sec (23.4-35.0)
[2024-04-27 13:11] LABS: Hemoglobin 9.7 g/dL (12.0-16.0); Platelet Count 168 10^3/uL (130-400)
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
[2024-04-27 13:22] LABS: Blood Urea Nitrogen 14 mg/dl (7-17); Estimated Creatinine Clearance 90 ml/min; Glucose 67 mg/dl (70-99); Magnesium 2.4 mg/dl (1.6-2.3)
[2024-04-27] MEDS: NEURONTIN PO ×3 (13:39→21:18)
[2024-04-27] MEDS: ANCEF 10 IV ×2 (13:40)
[2024-04-27] MEDS: NSS 500 IV (13:40)
[2024-04-27] MEDS: TYLENOL PO ×2 (13:40→21:18)
[2024-04-27 14:02] LABS: Glucose - Point of Care 203 mg/dl (70-99)
--- NOTE | 2024-04-27 14:25 | PTCARENOTE ---
Respiratory at bedside and pt placed on CPAP.
[2024-04-27 14:58] LABS: Glucose - Point of Care 171 mg/dl (70-99)
[2024-04-27 15:01] LABS: HCO3 22.6 mmol/L (21-28); Ionized Calcium 1.32 mMOL/L (1.15-1.33); O2 Saturation % 99.2 % (94-98); PCO2 47 mmHg (32-35); PO2 140 mmHg (83-108); Potassium 3.7 mMOL/L (3.5-5.1); Sodium 143 mMOL/L (136-145); pH 7.29 (7.35-7.45)
[2024-04-27] MEDS: KCL 50 IV (15:07)
--- NOTE | 2024-04-27 15:10 | PTCARENOTE ---
ABGs reviewed with CV PRODUCT TRAINER respiratory at bedside and pt extubated at 1508.
[2024-04-27] MEDS: OFIRMEV 100 IV (15:43)
[2024-04-27] MEDS: LR 250 IV (15:44)
[2024-04-27 15:52] LABS: B.E. -5.1 mmol/L; HCO3 21.2 mmol/L (21-28); PCO2 44 mmHg (32-35); PO2 169 mmHg (83-108); pH 7.29 (7.35-7.45)
[2024-04-27 15:58] LABS: Glucose - Point of Care 123 mg/dl (70-99)
[2024-04-27] MEDS: PACERONE PO (16:12)
[2024-04-27 16:16] LABS: Hematocrit 26.5 % (37.0-47.0); Hemoglobin 9.3 g/dL (12.0-16.0); Platelet Count 191 10^3/uL (130-400)
[2024-04-27 17:16] LABS: Glucose - Point of Care 91 mg/dl (70-99)
[2024-04-27] MEDS: LIPITOR PO (17:40)
[2024-04-27] MEDS: LOW STRENGTH ASPIRIN 81 MG PO (18:00)
[2024-04-27] MEDS: PLAVIX 75 MG PO (18:00)
[2024-04-27] MEDS: TORADOL 15 MG IV (18:13)
[2024-04-27 18:16] LABS: B.E. -3.6 mmol/L; HCO3 21.5 mmol/L (21-28); O2 Saturation % 99.7 % (94-98); PCO2 38 mmHg (32-35); PO2 164 mmHg (83-108); pH 7.36 (7.35-7.45)
[2024-04-27 19:08] LABS: Glucose - Point of Care 106 mg/dl (70-99)
[2024-04-27] MEDS: SODIUM BICARBONATE 50 MEQ IV (19:52)
[2024-04-27] MEDS: ANCEF 5 IV (19:52)
[2024-04-27] MEDS: SENOKOT-S PO (19:53)
--- NOTE | 2024-04-27 20:01 | PTCARENOTE ---
NSR on monitor and vSS; pt resting comfortably in bed; assessment unchanged.
[2024-04-27 21:19] LABS: Glucose - Point of Care 101 mg/dl (70-99)
[2024-04-27] MEDS: PACERONE 200 MG PO (21:21)
[2024-04-27] MEDS: MYLICON 80 MG PO (21:35)
--- NOTE | 2024-04-27 23:00 | PTCARENOTE ---
report received from previous RN, walking rounds done, assumed care of pt. pt in bed, AAOx4. pt c/o 10/ sternal incision pain, PRN dilaudid given IVP. NSR on monitor, HR 70's-80's. B/L radial and DP pulses palpable. heart tones clear. epicardial
wires intact and set to off. LT radial art line intact, SBP 90's-110's. RIJ cordis + SLIC intact w KVOs infusing. B/L breath sounds present. POX 96-97% on 2LNC. IS encouraged. CT x3 intact to -20cm wall suction, drainage WNL, no air leak present.
hsu catheter intact, draining CYU. UO adequate. hypoactive bowel sounds present. pt tolerating ice. Insulin gtt infusing per glycemic protocol. all surgical sites stable. turning/repositioning pt Q2H and as needed. see worklist for full
assessment, VS, and interventions. pt resting comfortably.
[2024-04-27 23:45] LABS: Glucose - Point of Care 90 mg/dl (70-99)
[2024-04-28] VITALS (27 sets, daily range): BP systolic 83–106; BP diastolic 43–73; PULSE 73; O2SAT 98–100; BMI 32.6; BMI 32.9
[2024-04-28] MEDS: SODIUM BICARBONATE 50 MEQ IV (00:08)
[2024-04-28 02:07] LABS: Glucose - Point of Care 100 mg/dl (70-99)
[2024-04-28 02:17] LABS: Hematocrit 23.8 % (37.0-47.0); Hemoglobin 8.6 g/dL (12.0-16.0); Mean Corp Hgb Conc. 36.1 g/dL (33.0-37.0); Mean Corpuscular Hgb 32.1 pg (27.0-31.0); Mean Corpuscular Volume 88.8 fL (81.0-99.0); Mean Platelet Volume 10.2 fL (7.4-10.4); Platelet Count 167 10^3/uL (130-400); Red Blood Cell Count 2.68 10^6/uL (4.20-5.40); Red Cell Dist. Width 12.4 % (11.5-14.5); White Blood Cell Count 13.2 10^3/uL (4.8-10.8)
[2024-04-28 02:26] LABS: INR 1.31; PT 16.1 Sec (11.4-14.6)
[2024-04-28] MEDS: DILAUDID 0.5 MG IV ×2 (02:47→20:21)
[2024-04-28 02:53] LABS: Glucose - Point of Care 89 mg/dl (70-99)
--- NOTE | 2024-04-28 03:00 | PTCARENOTE ---
no acute changes in assessment. pt oriented x4. sternal incision pain managed with PRN dilaudid. NSR 70's. normotensive. POX 95-96% on 2LNC. CT output and UO WNL. Insulin gtt maintained. all surgical sites stable. AM labs drawn and sent. EKG
completed. pt resting between care.
[2024-04-28 03:04] LABS: Blood Urea Nitrogen 19 mg/dl (7-17); Calcium 8.5 mg/dl (8.4-10.2); Carbon Dioxide 26 mmol/L (22-30); Chloride 113 mmol/L (98-107); Estimated Creatinine Clearance 90 ml/min; Glucose 88 mg/dl (70-99); Potassium 3.7 mmol/L (3.5-5.1); Sodium 144 mmol/L (135-145); eGFR > 60.00
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
[2024-04-28] MEDS: ANCEF 5 IV ×2 (04:07→11:34)
[2024-04-28] MEDS: KCL 40 MEQ PO (04:07)
[2024-04-28 04:11] LABS: Glucose - Point of Care 100 mg/dl (70-99)
[2024-04-28 04:47] LABS: Glucose - Point of Care 82 mg/dl (70-99)
[2024-04-28 06:12] LABS: Glucose - Point of Care 106 mg/dl (70-99)
[2024-04-28] MEDS: TYLENOL 1000 MG PO ×3 (06:19→22:17)
--- NOTE | 2024-04-28 07:33 | W.PN.ANS.POP ---
Anesthesia Post Operative
- Anesthesia Post Op Note
Vital Signs Stable-See Nursing Note: Yes
Airway Patent: Yes
Adequate Pain Control: Yes
Change in Mental Status: No
Current Postoperative Nausea & Vomiting: No
Anesthesia Complications: No
General Anesthetic Recall: No
Unplanned Admission: No
Post Op Hydration Adequate: Yes
[2024-04-28] MEDS: ULTRAM 50 MG PO (07:47)
[2024-04-28] MEDS: NEURONTIN 100 MG PO ×3 (07:48→22:17)
[2024-04-28 07:55] LABS: Glucose - Point of Care 80 mg/dl (70-99)
[2024-04-28] MEDS: NOVOLIN R INSULIN INFUSION 100 IV (09:08)
[2024-04-28] MEDS: PROTONIX 40 MG PO (09:32)
[2024-04-28] MEDS: BACTROBAN 2% OINTMENT 1 APPLIC NASAL ×2 (09:32→20:19)
[2024-04-28] MEDS: PACERONE 200 MG PO ×3 (09:32→22:17)
[2024-04-28] MEDS: MAGNESIUM OXIDE 500 MG PO ×2 (09:32→20:24)
[2024-04-28] MEDS: FEOSOL 325 MG PO (09:32)
[2024-04-28] MEDS: LOW STRENGTH ASPIRIN 81 MG PO (09:32)
[2024-04-28] MEDS: LIDOCAINE 4% PATCH 1 PATCH TOPICAL (09:33)
[2024-04-28] MEDS: PLAVIX 75 MG PO (09:33)
[2024-04-28] MEDS: SENOKOT-S 1 TABLET PO ×2 (09:33→20:24)
[2024-04-28] MEDS: VITAMIN C 500 MG PO (09:33)
--- NOTE | 2024-04-28 09:50 | PTCARENOTE ---
Report received from LUISA Castellanos at 0700. Pt assessed. Neuro intact x 4. Speech clear. Moves all extremities equally x 4. C/O sternal pain 6/10. Tramadol 50 mg po given. 2L/NC. Sats 94-97%. BBS present. Decreased to B bases. Mediastinal CT d/c'ed per
protocol. R and L CT placed to bulb suction. Vaseline gauze placed to L pleural tube to maintain suction. SSG drainage present. LOW Carrero aware. V wire insulated per protocol. Site cleansed with CHG. Sternal incision site well approximated. No
signs of infection. Belly soft, hypoactive bowel sounds x 4. Pulses +2 to B radials, B DP and PTs.
Pt helped with 2 RNs to standing. + lightheadedness. Pt weighed on standing scale and helped to recliner chair. BP 83/51. Given po fluids. BP up to 95/56. Pt feeling much better after fluid intake. Pt's sister visiting. Lidocaine patch to lower back
for c/o chronic back pain. Pt reports + relief to sternal incision. Glycemic protocol followed. Pt on insulin gtt per protocol.
--- NOTE | 2024-04-28 10:00 | PTCARENOTE ---
Mediastinal chest tube d/c'd as ordered, patient tolerated well. R and L pleural chest tubes placed to bulb evacuators - L pleural noted to be slowly losing suction. Addl vaseline gauze utilized, ANTONINA Manfred notified and to bedside.
[2024-04-28 10:02] LABS: Glucose - Point of Care 90 mg/dl (70-99)
[2024-04-28] MEDS: NSS IV (10:22)
[2024-04-28 10:40] LABS: ACT+ - POC > 1003 Seconds (82-134)
[2024-04-28 10:40] LABS: ACT+ - POC > 1003 Seconds (82-134)
[2024-04-28 10:40] LABS: ACT+ - POC > 1003 Seconds (82-134)
[2024-04-28] MEDS: LASIX 20 MG IV (11:34)
[2024-04-28] MEDS: FLEXERIL 5 MG PO (11:35)
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
[2024-04-28 11:59] LABS: Glucose - Point of Care 117 mg/dl (70-99)
--- NOTE | 2024-04-28 12:08 | PTCARENOTE ---
Lasix 20 mg IV given per order. Pt helped up to void with 2 RNs. BP maintained 90's/50's. Reports feeling well, no c/o lightheadedness. Pt voided 25 mls of clear, yellow urine. Helped back to chair. Bladder scanned for [address] L [address]
bulb emptied for 25 mls. Cardiac Rehab in to see pt.
--- NOTE | 2024-04-28 13:13 | W.PN.CARDCBS ---
Addendum entered and electronically signed by Gwyn Woods MD 04/28/24 13:50:
I saw and examined the patient.
The NET REPAIRER or PA's note was reviewed and I agree with the note.
Comment: General: Well developed, well nourished in NAD.
Neck: Supple, no JVD, HJR, carotids +2 B/L, no bruits bilaterally.
Heart: Non displaced PMI, RRR, no murmurs, No S3, S4, no rubs.
Lungs: Scattered rhonchi
Stable dressings noted
Extremities: No clubbing, cyanosis or edema bilaterally.
Neuro: Grossly nonfocal, awake, alert and oriented x3.
Stable cardiology status status post CABG. Remains in sinus rhythm.
Original Note:
Today's Communication / Plan
-
continue post op care
follow EKG
Impression / Plan
-
Primary Dogger: Dr. Longo
Assessment:
CAD with inferior STEMI s/p PCI RCA x 2 DIXIE 03/24/24 with residual mid LAD, diagonal and LCX/OM disease by cath, now s/p CABGx4 BARBA-D2/LAD, CHERELLE-OM/OM, on pump 04/27/24
NSVT
HTN
HLD
GERD
Migraines
h/o hernia repair
h/o back surgery
Family hx CAD
ECHO 03/24/2024: EF 55 to 60%, mild concentric LVH, mild MR, mild TR, PAP 22 mmHg
Plan:
-s/p CABGx4 BARBA-D2/LAD, CHERELLE-OM/OM, on pump 04/27/24
-reports feeling tired. some pain with deep breaths.
-follow hgb, 8.6 on 04/28. was on asa, brilinta preop given recent STEMI with RCA PCI. now on asa, plavix
-follow BPs, soft but stable. AM lopressor held.
-EKG 04/28 with possible pericarditis vs early repol, follow
-in SR on review of tele overnight. continue amiodarone
-continue post op care
-was on coreg 6.25mg BID, lisinopril 5mg daily, lipitor 80mg QPM prior to admission
-d/w nursing
Progress Note - Dogger
Subjective
Date of Service: April 28, 2024
reports feeling tired, with some pleuritic pain
Objective
Labs:
04/28/24 02:02
04/28/24 02:02
Labs
Hgb 8.6 g/dL (12.0-16.0) L 04/28/24 02:02
Hct 23.8 % (37.0-47.0) L 04/28/24 02:02
Plt Count 167 10^3/uL (130-400) 04/28/24 02:02
PT 16.1 Sec (11.4-14.6) H 04/28/24 02:02
INR 1.31 04/28/24 02:02
APTT 31.8 Sec (23.4-35.0) 04/27/24 12:38
Sodium 144 mmol/L (135-145) 04/28/24 02:02
Potassium 3.7 mmol/L (3.5-5.1) 04/28/24 02:02
BUN 19 mg/dl (7-17) H 04/28/24 02:02
Creatinine 0.6 mg/dL (0.6-1.0) 04/28/24 02:02
Glucose 88 mg/dl (70-99) 04/28/24 02:02
Vital Signs and I&O:
Vital Signs
Temp Pulse Resp BP Pulse Ox
99 F 73 16 95/49 100
04/28/24 08:00 04/28/24 13:02 04/28/24 12:00 04/28/24 13:02 04/28/24 12:00
Vital Signs
Temp Pulse Resp BP Pulse Ox
99 F 73 16 95/49 100
04/28/24 08:00 04/28/24 13:02 04/28/24 12:00 04/28/24 13:02 04/28/24 12:00
Intake & Output
04/26/24 04/27/24 04/28/24 04/29/24
07:59 07:59 07:59 07:59
Intake Total 690.5 / 700.7 313.6 / 313.6
Output Total 1655 / 1655 90 / 90
Balance -964.5 / -954.3 223.6 / 223.6
Physical Exam
Physical Exam
GEN: No distress, awake, alert, oriented x3
HEENT: supple, anicteric, mmm, eomi
LUNGS: Decreased BS B/L, no wheezes
CV: Reg, S1/S2, no murmur
EXT: No cyanosis, clubbing, edema
NEURO: Gross non-focal
SKIN: Warm, pink, dry. No rash. Sternotomy incision c/d/i
[2024-04-28 14:03] LABS: Glucose - Point of Care 103 mg/dl (70-99)
--- NOTE | 2024-04-28 16:20 | PTCARENOTE ---
VS obtained, assessment stable. Patient remains oob in chair, resting. Sister at bedside for visit.
[2024-04-28] MEDS: LIPITOR 80 MG PO (17:43)
[2024-04-28] MEDS: NOVOLOG FLEXPEN-MODERATE RESISTANCE SC (17:47)
[2024-04-28 17:48] LABS: Glucose - Point of Care 117 mg/dl (70-99)
[2024-04-28] MEDS: ProAmatine 5 MG PO (18:32)
--- NOTE | 2024-04-28 20:30 | PTCARENOTE ---
report received from previous RN @ 1900, walking rounds done. pt in chair w family @ bedside. pt AAOx4. pt c/o sternal incision pain, c/o SOB. POX 85% on RA. placed pt on 3LNC--now 93%. PRN dilaudid given per orders. NSR on monitor, HR 80's. pt
normotensive. CT x2 to bulb suction, drainage WNL. pt voids in BR without difficulty. no complaints of n/v. RIJ cordis intact w KVO infusing. PIV intact and patent. see worklist for full assessment, VS, and interventions. pt assisted into bed and
resting comfortably.
[2024-04-29] VITALS (20 sets, daily range): BP systolic 95–125; BP diastolic 54–70; BMI 33.3
[2024-04-29] MEDS: TYLENOL 1000 MG PO ×2 (05:37→22:59)
--- NOTE | 2024-04-29 05:45 | PTCARENOTE ---
pt VSS, no acute changes in assessment overnight. NSR 70s-80s. normotensive. pt remains on 3LNC, POX 93-94%. IS encouraged. CT output minimal. RIJ cordis remains intact. AM labs drawn and sent. CXR done. pt sleeping between care.
[2024-04-29 05:51] LABS: Hematocrit 21.7 % (37.0-47.0); Hemoglobin 7.4 g/dL (12.0-16.0); Mean Corp Hgb Conc. 34.1 g/dL (33.0-37.0); Mean Corpuscular Hgb 32.2 pg (27.0-31.0); Mean Corpuscular Volume 94.3 fL (81.0-99.0); Mean Platelet Volume 10.6 fL (7.4-10.4); Platelet Count 150 10^3/uL (130-400); Red Cell Dist. Width 12.7 % (11.5-14.5); White Blood Cell Count 14.7 10^3/uL (4.8-10.8)
[2024-04-29 06:08] LABS: Blood Urea Nitrogen 32 mg/dl (7-17); Calcium 8.4 mg/dl (8.4-10.2); Carbon Dioxide 29 mmol/L (22-30); Chloride 107 mmol/L (98-107); Estimated Creatinine Clearance 68 ml/min; Glucose 109 mg/dl (70-99); Magnesium 2.3 mg/dl (1.6-2.3); Potassium 4.4 mmol/L (3.5-5.1); Sodium 138 mmol/L (135-145); eGFR > 60.00
[2024-04-29 07:54] LABS: Glucose - Point of Care 133 mg/dl (70-99)
--- NOTE | 2024-04-29 08:00 | PTCARENOTE ---
Report received from Jasmin MORAN. Pt assessed this am. Sitting up in chair. Alert, oriented x 4. Speech clear. Room air. Sats 89-91%. IS encouraged. O2 at 1L/NC applied. Sats up to 95%. Encouraged 10 puffs to IS hourly. Pt in SR, rate 80's. BP 95/55.
+2 palp pulses B radials a DP's. Edema to B hands/pedal. Sternal incision well approximated, no signs of infection. Audible heart tones. V wire insulated to chest. L pleural CT bulb with 70 mls SSG drainage. R pleural CT to bulb suction with 10 mls
SSG drainage. Belly soft, hypoactive x 4. No c/o abdominal pain.
[2024-04-29] MEDS: NOVOLOG FLEXPEN-MODERATE RESISTANCE SC ×2 (08:35→18:06)
[2024-04-29] MEDS: BACTROBAN 2% OINTMENT 1 APPLIC NASAL ×2 (08:50→20:17)
[2024-04-29] MEDS: FEOSOL 325 MG PO (08:51)
[2024-04-29] MEDS: LIDOCAINE 4% PATCH 1 PATCH TOPICAL (08:51)
[2024-04-29] MEDS: NEURONTIN 100 MG PO ×3 (08:52→22:59)
[2024-04-29] MEDS: MAGNESIUM OXIDE 500 MG PO ×2 (08:52→20:13)
[2024-04-29] MEDS: LOW STRENGTH ASPIRIN 81 MG PO (08:52)
[2024-04-29] MEDS: PACERONE 200 MG PO ×3 (08:53→22:59)
[2024-04-29] MEDS: PLAVIX 75 MG PO (08:53)
[2024-04-29] MEDS: ProAmatine 5 MG PO ×2 (08:54→18:06)
[2024-04-29] MEDS: VITAMIN C 500 MG PO (08:55)
[2024-04-29] MEDS: PROTONIX 40 MG PO (08:55)
[2024-04-29] MEDS: SENOKOT-S 1 TABLET PO ×2 (08:55→20:13)
[2024-04-29] MEDS: ULTRAM 50 MG PO ×2 (08:55→20:25)
--- NOTE | 2024-04-29 09:17 | PTCARENOTE ---
Pt assisted back to bed with 2 RNs. C/O chronic pain to lower back and lightheadedness while up in chair. Tramadol 50 mg given for 6/10 pain. Lidocaine patch applied. AM meds given. BP taken 107/56. Sats on 1L/NC 95%. T 98.
--- NOTE | 2024-04-29 09:47 | W.PN.CARDCBS ---
Addendum entered and electronically signed by Abner Bedolla MD 04/29/24 10:18:
I saw and examined the patient.
The Occupational Health Manager's note was reviewed and I agree with the note.
Comment:
GEN: No distress, awake, Ox3
HEENT: supple, anicteric, mmm
LUNGS: CTA, no wheezes/rales
CV: Reg, S1/S2, 1/6 syst LSB, no gallop
ABD: soft, BS+, NT/ND
EXT: No edema
NEURO: Gross non-focal
SKIN: No rash
Plan:
Received 1 unit of packed red blood cells today for hemoglobin of 7.4. Wean midodrine as tolerated.
Remains in sinus rhythm and overall doing well.
Original Note:
Today's Communication / Plan
-
for 1 U PRBCs today
follow BPs, hopefully wean midodrine
continue post op care
Impression / Plan
-
Primary Material Spreader: Dr. Longo
Assessment:
CAD with inferior STEMI s/p PCI RCA x 2 DIXIE 03/24/24 with residual mid LAD, diagonal and LCX/OM disease by cath, now s/p CABGx4 BARBA-D2/LAD, CHERELLE-OM/OM, on pump 04/27/24
NSVT
HTN
HLD
GERD
Migraines
h/o hernia repair
h/o back surgery
Family hx CAD
ECHO 03/24/2024: EF 55 to 60%, mild concentric LVH, mild MR, mild TR, PAP 22 mmHg
Plan:
-s/p CABGx4 BARBA-D2/LAD, CHERELLE-OM/OM, on pump 04/27/24
-reports some lightheadedness. hgb down to 7.4 for 1 U PRBCs today
-was on asa, brilinta preop given recent STEMI with RCA PCI. now on asa, plavix
-in SR on review of tele overnight. continue amiodarone. lopressor on hold with relative hypotension, receiving midodrine
-EKG 04/28 with possible pericarditis vs early repol, follow
-continue post op care, OOB/IS as able
-was on coreg 6.25mg BID, lisinopril 5mg daily, lipitor 80mg QPM prior to admission
-d/w nursing. d/w sister at bedside
Progress Note - Material Spreader
Subjective
Date of Service: April 29, 2024
Denies chest pain. Reports some mild lightheadedness. For 1 unit packed red blood cells today.
Objective
Labs:
04/29/24 05:36
04/29/24 05:36
Labs
Hgb 7.4 g/dL (12.0-16.0) L 04/29/24 05:36
Hct 21.7 % (37.0-47.0) L 04/29/24 05:36
Plt Count 150 10^3/uL (130-400) 04/29/24 05:36
PT 16.1 Sec (11.4-14.6) H 04/28/24 02:02
INR 1.31 04/28/24 02:02
APTT 31.8 Sec (23.4-35.0) 04/27/24 12:38
Sodium 138 mmol/L (135-145) 04/29/24 05:36
Potassium 4.4 mmol/L (3.5-5.1) 04/29/24 05:36
BUN 32 mg/dl (7-17) H 04/29/24 05:36
Creatinine 0.8 mg/dL (0.6-1.0) 04/29/24 05:36
Glucose 109 mg/dl (70-99) H 04/29/24 05:36
Vital Signs and I&O:
Vital Signs
Temp Pulse Resp BP Pulse Ox
98 F 79 15 107/56 95
04/29/24 09:36 04/29/24 09:36 04/29/24 09:36 04/29/24 09:36 04/29/24 09:36
Vital Signs
Temp Pulse Resp BP Pulse Ox
98 F 79 15 107/56 95
04/29/24 09:36 04/29/24 09:36 04/29/24 09:36 04/29/24 09:36 04/29/24 09:36
Intake & Output
04/27/24 04/28/24 04/29/24 04/30/24
07:59 07:59 07:59 07:59
Intake Total 690.5 / 700.7 713.6 / 723.6
Output Total 1655 / 1655 1230 / 1310 80 / 80
Balance -964.5 / -954.3 -516.4 / -586.4 -70 / -70
Physical Exam
Physical Exam
GEN: No distress, awake, alert, oriented x3
HEENT: supple, anicteric, mmm, eomi
LUNGS: Decreased BS B/L, no wheezes
CV: Reg, S1/S2, no murmur
EXT: No cyanosis, clubbing, edema
NEURO: Gross non-focal
SKIN: Warm, pink, dry. No rash. Sternotomy incision c/d/i
--- NOTE | 2024-04-29 10:05 | PTCARENOTE ---
1 unit PRBCs started per order and per protocol. 15 minute VS done and recorded in TAR. Pt resting comfortably. no c/o pin. Sister at bedside.
Cardiolgy and PA in to see pt.
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
[2024-04-29] MEDS: NSS 500 IV (11:58)
[2024-04-29] MEDS: LASIX 20 MG IV (12:05)
[2024-04-29 12:09] LABS: Glucose - Point of Care 158 mg/dl (70-99)
[2024-04-29] MEDS: NOVOLOG FLEXPEN-MODERATE RESISTANCE 1 UNITS SC (12:14)
--- NOTE | 2024-04-29 12:23 | CM ---
CM following for DC planning needs.
Pt. is POD#[address] Surgery.
Met w/ patient, sister at bedside. Pt. reports that she is doing well.
Pt. resides w/ spouse in a private 2 story home with 1 LAVON. Functionally, patient is indep. at baseline w/ ADLs and mobility.
Anticipated DC plan is for home w/ CT Transitional Care RN.
CM will cont. to follow.
--- NOTE | 2024-04-29 12:23 | PTCARENOTE ---
1U PRBC completed. Lasix 20 mg IV given. See VS.
--- NOTE | 2024-04-29 12:46 | PTCARENOTE ---
Pt helped to BR with 1 RN assist. Voided 300 mls yellow urine, appears concentrated. Helped to chair. ordered lunch. VS recorded. Feeling much better Little lightheadedness with going from lying to sitting. Sister at bedside.
[2024-04-29] MEDS: TYLENOL PO (15:51)
--- NOTE | 2024-04-29 16:22 | PTCARENOTE ---
Walked pt in hallway, 10ml drained from RP CT, 30ml from LP. Drainage reported to CT ANTONINA. RP CT removed without incident.
[2024-04-29 18:06] LABS: Glucose - Point of Care 144 mg/dl (70-99)
[2024-04-29] MEDS: LIPITOR 80 MG PO (18:06)
[2024-04-29 19:07] LABS: Hepatitis C Antibody Negative (Negative)
--- NOTE | 2024-04-29 20:00 | PTCARENOTE ---
Assumed care of patient at 1900. Patient found OOB in chair at time of assessment. Patient is AOx4, follows commands appropriately, moves all extremities. Lung sounds are clear and equal bilaterally, saO2 is 92% on RA, there is a L pleural CT in
place draining red sanguineous drainage. Heart sounds have a regular rate and rhythm, there are normal palpable pulses, no edema is present. Patient is SR on the monitor. Patient has active BS in all four quadrants and voids clear yellow in BR.
There is a sternal incision approx with surg adhesive JEZ. Patient has R IJ cordis receiving KVO and R AC 20G PIV. VSS.
[2024-04-29] MEDS: FLEXERIL 5 MG PO (20:25)
[2024-04-29 23:04] LABS: Glucose - Point of Care 131 mg/dl (70-99)
[2024-04-30] VITALS (15 sets, daily range): BP systolic 72–112; BP diastolic 26–70; PULSE 70; O2SAT 96–97; BMI 33.2
--- NOTE | 2024-04-30 | PTCARENOTE ---
Patient reassessed. VSS. Patient received ultram for pain and flexeril for muscle spasm HS no further complaints at this time. Remains SR on the monitor.
--- NOTE | 2024-04-30 04:00 | PTCARENOTE ---
Patient reassessed. Remains in SR on the monitor. Low BP with [address] PA notified. No new orders advised to reassess prior to mobilizing patient. AM labs obtained.
[2024-04-30 04:28] LABS: Hematocrit 23.6 % (37.0-47.0); Hemoglobin 8.3 g/dL (12.0-16.0); Mean Corp Hgb Conc. 35.2 g/dL (33.0-37.0); Mean Corpuscular Hgb 32.5 pg (27.0-31.0); Mean Corpuscular Volume 92.5 fL (81.0-99.0); Mean Platelet Volume 10.6 fL (7.4-10.4); Platelet Count 138 10^3/uL (130-400); Red Blood Cell Count 2.55 10^6/uL (4.20-5.40); Red Cell Dist. Width 13.5 % (11.5-14.5); White Blood Cell Count 11.8 10^3/uL (4.8-10.8)
[2024-04-30 04:51] LABS: Blood Urea Nitrogen 22 mg/dl (7-17); Calcium 8.2 mg/dl (8.4-10.2); Carbon Dioxide 28 mmol/L (22-30); Chloride 107 mmol/L (98-107); Estimated Creatinine Clearance 92 ml/min; Glucose 105 mg/dl (70-99); Magnesium 2.1 mg/dl (1.6-2.3); Sodium 137 mmol/L (135-145); eGFR > 60.00
[2024-04-30] MEDS: TYLENOL 1000 MG PO ×3 (07:23→21:43)
[2024-04-30 08:19] LABS: Glucose - Point of Care 135 mg/dl (70-99)
--- NOTE | 2024-04-30 09:15 | PTCARENOTE ---
Report received from LUISA Sawyer this am. Walking rounds performed. Assisted pt to BR to void concentrated, yellow urine, then to standing scale. Pt helped to chair. Pt remains awake, alert, oriented x 4. Speech clear. No c/o pain at present. Room air
sat while in chair 92-94%. BBS present. Decreased to B bases. CDB and IS encouraged. IS peak 750 mls. Sternal incision open to air. Well approximated, no redness, drainage. Left CT to bulb suction, serosanguinous drainage. V wire insulated to
chest. Audible heart tones present. Pt in SR 70-80's. Palpable pulses to B radial and B DPs. Belly soft. Normoactive bowel sounds x 4. Legs warm, pink, well -perfused. Blood glucose monitoring ACHS.
[2024-04-30] MEDS: ProAmatine 5 MG PO ×2 (09:28→18:04)
[2024-04-30] MEDS: NOVOLOG FLEXPEN-MODERATE RESISTANCE SC ×3 (09:36→16:39)
[2024-04-30] MEDS: FEOSOL 325 MG PO (09:37)
[2024-04-30] MEDS: BACTROBAN 2% OINTMENT 1 APPLIC NASAL ×2 (09:37→19:54)
[2024-04-30] MEDS: LIDOCAINE 4% PATCH 1 PATCH TOPICAL (09:38)
[2024-04-30] MEDS: LOW STRENGTH ASPIRIN 81 MG PO (09:38)
[2024-04-30] MEDS: MAGNESIUM OXIDE 500 MG PO ×2 (09:39→19:53)
[2024-04-30] MEDS: NEURONTIN 100 MG PO ×3 (09:39→21:43)
[2024-04-30] MEDS: PLAVIX 75 MG PO (09:40)
[2024-04-30] MEDS: PROTONIX 40 MG PO (09:40)
[2024-04-30] MEDS: PACERONE 200 MG PO (09:40)
[2024-04-30] MEDS: VITAMIN C 500 MG PO (09:41)
[2024-04-30] MEDS: SENOKOT-S 1 TABLET PO ×2 (09:41→19:53)
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
--- NOTE | 2024-04-30 10:30 | PTCARENOTE ---
Pt c/o lightheadedness this am. BP 88/59. Midodrine given a prescribed. Pt helped from chair, back to bed. Dr. Coelho in this am for rounds. At 10 am, left pleural CT discontinued per order and per protocol. Vaseline gauze and dry sterile gauze
dressing applied.
At ~ 1015, RIJ cordis discontinued per order and per protocol. Vaseline gauze and dry sterile gauze dressing applied.
--- NOTE | 2024-04-30 11:32 | W.PN.CARDCBS ---
Addendum entered and electronically signed by Abner Bedolla MD 04/30/24 11:41:
I saw and examined the patient.
The Manager Project's note was reviewed and I agree with the note.
Comment:
GEN: No distress, awake, Ox3
HEENT: supple, anicteric, mmm
LUNGS: CTA, no wheezes/rales
CV: Reg, S1/S2, no gallop
ABD: soft, BS+, NT/ND
EXT: No edema
NEURO: Gross non-focal
SKIN: No rash
Plan:
Hg at 8.3. Bp still borderline. Cont midodrine
Hold Metoprolol. Cont Amio. In sinus
Cont ASA/Plavix
Original Note:
Today's Communication / Plan
-
follow hgb and BPs
continue post op care
Impression / Plan
-
Primary Health And Safety Manager: Dr. Longo
Assessment:
CAD with inferior STEMI s/p PCI RCA x 2 DIXIE 03/24/24 with residual mid LAD, diagonal and LCX/OM disease by cath, now s/p CABGx4 BARBA-D2/LAD, CHERELLE-OM/OM, on pump 04/27/24
NSVT
HTN
HLD
GERD
Migraines
h/o hernia repair
h/o back surgery
Family hx CAD
ECHO 03/24/2024: EF 55 to 60%, mild concentric LVH, mild MR, mild TR, PAP 22 mmHg
Plan:
-s/p CABGx4 BARBA-D2/LAD, CHERELLE-OM/OM, on pump 04/27/24
-Remains with some dizziness. States that it did improve somewhat after receiving transfusion yesterday. Hemoglobin up to 8.3.
-was on asa, brilinta preop given recent STEMI with RCA PCI. now on asa, plavix
-in SR on review of tele overnight. continue amiodarone. lopressor on hold with relative hypotension, receiving midodrine
-EKG 04/28 with possible pericarditis vs early repol, follow
-continue post op care, OOB/IS as able
-was on coreg 6.25mg BID, lisinopril 5mg daily, lipitor 80mg QPM prior to admission
-d/w nursing. d/w family at bedside
Progress Note - Health And Safety Manager
Subjective
Date of Service: April 30, 2024
Continues with some dizziness
Objective
Labs:
04/30/24 04:02
04/30/24 04:02
Labs
Hgb 8.3 g/dL (12.0-16.0) L 04/30/24 04:02
Hct 23.6 % (37.0-47.0) L 04/30/24 04:02
Plt Count 138 10^3/uL (130-400) 04/30/24 04:02
PT 16.1 Sec (11.4-14.6) H 04/28/24 02:02
INR 1.31 04/28/24 02:02
APTT 31.8 Sec (23.4-35.0) 04/27/24 12:38
Sodium 137 mmol/L (135-145) 04/30/24 04:02
Potassium 4.0 mmol/L (3.5-5.1) 04/30/24 04:02
BUN 22 mg/dl (7-17) H 04/30/24 04:02
Creatinine 0.6 mg/dL (0.6-1.0) 04/30/24 04:02
Glucose 105 mg/dl (70-99) H 04/30/24 04:02
Vital Signs and I&O:
Vital Signs
Temp Pulse Resp BP Pulse Ox
98.1 F 71 15 97/56 94
04/30/24 10:18 04/30/24 10:18 04/30/24 10:18 04/30/24 10:18 04/30/24 10:18
Vital Signs
Temp Pulse Resp BP Pulse Ox
98.1 F 71 15 97/56 94
04/30/24 10:18 04/30/24 10:18 04/30/24 10:18 04/30/24 10:18 04/30/24 10:18
Intake & Output
04/28/24 04/29/24 04/30/24 05/01/24
07:59 07:59 07:59 07:59
Intake Total 690.5 / 700.7 713.6 / 723.6 560 / 570 30 / 30
Output Total 1655 / 1655 1230 / 1310 1445 / 1770 350 / 350
Balance -964.5 / -954.3 -516.4 / -586.4 -885 / -1200 -320 / -320
Physical Exam
Physical Exam
GEN: No distress, awake, alert, oriented x3
HEENT: supple, anicteric, mmm, eomi
LUNGS: CTA B/L, no wheezes
CV: Reg, S1/S2, no murmur
EXT: No cyanosis, clubbing, edema
NEURO: Gross non-focal
SKIN: Warm, pink, dry. No rash. Sternotomy incision c/d/i
[2024-04-30 11:51] LABS: Glucose - Point of Care 130 mg/dl (70-99)
--- NOTE | 2024-04-30 12:00 | PTCARENOTE ---
Erroneous BP recorded: . Cuff not on patient at time of measurement. Follow up BP 100's/58-62. Cardiac Rehab in with pt. She is feeling well. Walked total of 450 feet with Cardiac Rehab. Helped to chair. Accucheck done. Lunch ordered and eaten.
[2024-04-30] MEDS: NSS IV (12:11)
[2024-04-30] MEDS: MILK OF MAGNESIA 30 ML PO (13:02)
--- NOTE | 2024-04-30 14:04 | CM ---
CM following for DC planning needs.
Met w/ patient, spouse, sister at bedside.
Patient reports that she is feeling well. She is hopeful for DC over w/e.
Reviewed DC plan for home w/ CT Transitional Care RN. There are no other immediate concerns or needs identified.
CM will cont. to follow.
--- NOTE | 2024-04-30 14:20 | PTCARENOTE ---
Addendum entered by Fco Newby RN 04/30/24 18:33:
Pt reports BM also looked greenish in color.
Original Note:
Pt with large, soft, brown BM after having MOM 30 mls for constipation.
--- NOTE | 2024-04-30 16:20 | PTCARENOTE ---
Pt assessed. VS done. See VS. Pt walked 450 feet with RN. No c/o dizziness or lightheadedness. Gabapentin given as scheduled. Pt back to bed per request. Glucose done: 123. Awaiting dinner and will help pt back to chair.
[2024-04-30 16:37] LABS: Glucose - Point of Care 123 mg/dl (70-99)
[2024-04-30] MEDS: LIPITOR 80 MG PO (18:04)
--- NOTE | 2024-04-30 18:26 | PTCARENOTE ---
Meds given as scheduled for 1800: Atorvastatin and Midodrine. Pt walked 450 feet without SOB. No c/o CP. Pt helped back to bed per request.
--- NOTE | 2024-04-30 20:00 | PTCARENOTE ---
Received pt from dayshift; pt resting comfortably in bed; pain rated 3/10; pt is AAOx4; NSR on monitor, VSS; heart sounds audible, radial and DP pulses palpable, temp epicardial V-wires insulated; lungs CTA, diminished and b/l bases, spo2 96% on RA;
+BS x4 quadrants, abdomen soft non tender; pt voiding dark yellow urine; surgical sites maintained; PIV maintained; plan is for d/c tomorrow; call lora within reach; will continue to monitor.
[2024-04-30] MEDS: FLEXERIL 5 MG PO (21:44)
[2024-04-30] MEDS: ULTRAM 25 MG PO (21:44)
[2024-04-30 22:00] LABS: Glucose - Point of Care 97 mg/dl (70-99)
[2024-05-01] VITALS (7 sets, daily range): BP systolic 101–122; BP diastolic 58–70; PULSE 90; O2SAT 98; BMI 33.1
--- NOTE | 2024-05-01 | PTCARENOTE ---
Pt assessment unchanged; NSR on monitor, VSS; pt assisted out of bed to restroom and back to bed; call lora within reach; will continue to monitor.
--- NOTE | 2024-05-01 04:00 | PTCARENOTE ---
Pt assessment unchanged; pt resting comfortably in bed; NSR on monitor, VSS; call lora within reach; will continue to monitor.
[2024-05-01 06:01] LABS: Hematocrit 26.6 % (37.0-47.0); Hemoglobin 9.2 g/dL (12.0-16.0); Mean Corp Hgb Conc. 34.6 g/dL (33.0-37.0); Mean Corpuscular Volume 89.6 fL (81.0-99.0); Mean Platelet Volume 10.2 fL (7.4-10.4); Platelet Count 208 10^3/uL (130-400); Red Blood Cell Count 2.97 10^6/uL (4.20-5.40); Red Cell Dist. Width 13.5 % (11.5-14.5); White Blood Cell Count 8.1 10^3/uL (4.8-10.8)
[2024-05-01] MEDS: TYLENOL 1000 MG PO (06:30)
[2024-05-01 06:33] LABS: Blood Urea Nitrogen 14 mg/dl (7-17); Calcium 8.8 mg/dl (8.4-10.2); Carbon Dioxide 26 mmol/L (22-30); Chloride 108 mmol/L (98-107); Estimated Creatinine Clearance 92 ml/min; Glucose 95 mg/dl (70-99); Magnesium 2.2 mg/dl (1.6-2.3); Potassium 4.2 mmol/L (3.5-5.1); Sodium 139 mmol/L (135-145); eGFR > 60.00
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
[2024-05-01 07:47] LABS: Glucose - Point of Care 110 mg/dl (70-99)
[2024-05-01] MEDS: NOVOLOG FLEXPEN-MODERATE RESISTANCE SC ×2 (07:47→12:51)
[2024-05-01] MEDS: LIDOCAINE 4% PATCH 1 PATCH TOPICAL (08:45)
[2024-05-01] MEDS: LOW STRENGTH ASPIRIN 81 MG PO (08:48)
[2024-05-01] MEDS: MAGNESIUM OXIDE 500 MG PO (08:49)
[2024-05-01] MEDS: VITAMIN C 500 MG PO (08:49)
[2024-05-01] MEDS: ProAmatine 5 MG PO (08:49)
[2024-05-01] MEDS: PLAVIX 75 MG PO (08:49)
[2024-05-01] MEDS: NEURONTIN 100 MG PO (08:49)
[2024-05-01] MEDS: PROTONIX 40 MG PO (08:49)
[2024-05-01] MEDS: FEOSOL 325 MG PO (08:49)
[2024-05-01] MEDS: SENOKOT-S PO (08:49)
[2024-05-01] MEDS: BACTROBAN 2% OINTMENT 1 APPLIC NASAL (08:50)
--- NOTE | 2024-05-01 08:50 | PTCARENOTE ---
Assumed care of patient at 0700. Pt is awake, alert, and oriented. No complaints of pain. Pt remains SR with HR 70's. BP 115/60 MAP 73. Epicardial V wire insulated. Pulse oximetry 97% on room air. Pt achieving 1000 with IS, continued use encouraged.
Pt tolerating PO diet. Voiding without issue. Midsternal incision approximated and WORKERS COMPENSATION SPECIALIST. Pt currently resting OOB in chair with call lora within reach.
--- NOTE | 2024-05-01 09:44 | W.PN.CARDCBS ---
Today's Communication / Plan
-
Cont Midodrine
ambulate
cont ASA, PLavix
Cont to hold beta-vijay/COURTNEY
if feels well, of for D/C from Cards
Impression / Plan
-
Primary Mill And Coal Transport Operator: Dr. Longo
Assessment:
CAD with inferior STEMI s/p PCI RCA x 2 DIXIE 03/24/24 with residual mid LAD, diagonal and LCX/OM disease by cath, now s/p CABGx4 BARBA-D2/LAD, CHERELLE-OM/OM, on pump 04/27/24
NSVT
HTN
HLD
GERD
Migraines
h/o hernia repair
h/o back surgery
Family hx CAD
ECHO 03/24/2024: EF 55 to 60%, mild concentric LVH, mild MR, mild TR, PAP 22 mmHg
Plan:
-s/p CABGx4 BARBA-D2/LAD, CHERELLE-OM/OM, on pump 04/27/24
-dizziness slowly improving. Hemoglobin up to 9.2
-was on asa, brilinta preop given recent STEMI with RCA PCI. now on asa, plavix
-in SR. continue amiodarone. lopressor on hold with relative hypotension, receiving midodrine
-EKG 04/28 with possible pericarditis vs early repol, follow
-continue post op care, OOB/IS as able
-was on coreg 6.25mg BID, lisinopril 5mg daily
-cont Lipitor 80mg daily
Progress Note - Mill And Coal Transport Operator
Subjective
Date of Service: May 01, 2024
still with some dizziness. No chest pains
Objective
Labs:
05/01/24 05:38
05/01/24 05:38
Labs
Hgb 9.2 g/dL (12.0-16.0) L 05/01/24 05:38
Hct 26.6 % (37.0-47.0) L 05/01/24 05:38
Plt Count 208 10^3/uL (130-400) D 05/01/24 05:38
PT 16.1 Sec (11.4-14.6) H 04/28/24 02:02
INR 1.31 04/28/24 02:02
APTT 31.8 Sec (23.4-35.0) 04/27/24 12:38
Sodium 139 mmol/L (135-145) 05/01/24 05:38
Potassium 4.2 mmol/L (3.5-5.1) 05/01/24 05:38
BUN 14 mg/dl (7-17) 05/01/24 05:38
Creatinine 0.5 mg/dL (0.6-1.0) L 05/01/24 05:38
Glucose 95 mg/dl (70-99) 05/01/24 05:38
Vital Signs and I&O:
Vital Signs
Temp Pulse Resp BP Pulse Ox
98.1 F 77 16 115/60 97
05/01/24 08:00 05/01/24 09:00 05/01/24 08:00 05/01/24 08:45 05/01/24 08:45
Vital Signs
Temp Pulse Resp BP Pulse Ox
98.1 F 77 16 115/60 97
05/01/24 08:00 05/01/24 09:00 05/01/24 08:00 05/01/24 08:45 05/01/24 08:45
Intake & Output
04/29/24 04/30/24 05/01/24 05/02/24
06:59 06:59 06:59 06:59
Intake Total 713.8 / 723.8 570 / 570 30
Output Total 1230 / 1230 1445 / 1445 1900 / 1900
Balance -516.2 / -506.2 -875 / -875 -1870 / -1870
Physical Exam
Physical Exam
GEN: No distress, awake, Ox3
HEENT: supple, anicteric, mmm
LUNGS: CTA, no wheezes/rales
CV: Reg, S1/S2, no gallop
ABD: soft, BS+, NT/ND
EXT: No edema
NEURO: Gross non-focal
SKIN:no rash
--- NOTE | 2024-05-01 10:09 | W.DCSUMMARY ---
Discharge Summary
Discharge Data
Date of Admission: 04/27/24
Date of Discharge: 05/01/24
Total time spent discharging patient (in min): 45
-
Pending Results: No
Hospital Course
Primary care physician:
Dr. Mike Mar
Outpatient youth corrections officer:
Dr. Longo
Inpatient consultants:
DCA, vacuum worker
Procedures:
1. Cabg x 4 (melgar - d2/lad, yahaira- om/om), by Dr. Coelho on 04/27/24
Primary Diagnosis:
1. Coronary artery disease
Secondary Diagnoses:
1.Recent Inferior [place] S/P PCI with DIXIE x2 to RCA, 03/24/24
2. Hypertension
3. Hyperlipidemia
4.Class 1 obesity (BMI 33)
5.Prediabetes (hgb A1C 6.3)
6. cute postop blood loss on chronic Anemia
7. Acute postop atelectasis
8. Acute postop hypovolemia with subsequent hypervolemia
HPI: 58-year-old female with recent stent to the RCA presented electively for a coronary artery bypass x [address] Wilbur Gibson on 04/27/2024
Hospital course: Patient's procedure went well and returned to the CVICU after procedure. She was on Levophed, Precedex, and insulin infusions. Precedex was weaned off and patient was extubated by 1520 and was started on Plavix once she was
tolerating orals. On 04/28, postoperative day #1 patient's insulin drip was turned off and was transferred to telemetry status. Mediastinal chest tube was removed and pleural chest tube was bulbed. Patient was started on beta-blockers and
amiodarone and patient's hemoglobin was 8.6. Later in the evening patient became hypotensive beta-blockers were discontinued and patient was started on midodrine. On 04/29 postoperative day #2 patient was found to be anemic with a hemoglobin of 7.2
and she received 1 unit of PRBCs with 20 mg of IV Lasix. She was started on oral iron. Blood pressure improved and midodrine was weaned from 3 times daily to twice daily. Right pleural chest tube was removed. Patient ambulated without issue. On
7/ postoperative day #3 remaining chest tube was removed along with a right IJ cordis. Patient's hemoglobin posttransfusion was 8.3 and patient reported feeling better. On 05/01 postoperative day #4, patient's hemoglobin continues to improve to
9.2. She will be discharged on midodrine and given instructions to check her blood pressure before each dose. Her 2 view chest x-ray remained stable. She was deemed stable for discharge and all her prescriptions were sent to her preferred
pharmacy.
Home medication changes:
See below
Discharge Plan
-
Patient Disposition: Home (Routine Discharge)
Discharge Diagnosis/Procedures: CAD/CABG
Condition: Good
Diet: Low Cholesterol and Low Sodium
Activity: No strenuous activity
Driving Restrictions: Not until seen by your Dr
Bathing Restrictions: OK to Shower
Other Services: Cardiac Rehab
Specialty Instructions: Weigh Daily- Call MD for wt gain/loss 3 lbs overnight/5 lbs in 1 week
Activity Restrictions/Additional Instructions:
ACTIVITY:
-No strenuous activity: no heavy lifting, pushing, pulling anything over 15 pounds for one month
-continue to use stairs as tolerated
DRIVING RESTRICTIONS:
-No driving for one month or until approved by your surgeon
WOUND CARE:
-Shower daily. Use soap & water.
-No lotions, creams or powders on incision area.
DIET:
-continue a low fat/low cholesterol diet.
-IF you are diabetic, continue carb controlled diet.
CARDIAC REHAB:
-Please make appointment to start in 5-6 weeks with your local hospital program. (See Cardiac Rehabilitation Discharge Booklet).
SPECIALTY INSTRUCTIONS:
-Weigh yourself daily. Call your physician for any weight gain/loss of 3 lbs overnight or 5 lbs in one week.
-REPORT any clicking noise or uneven appearance of your sternum to your surgeon immediately.
-If you smoke, you are instructed to quit. The [place] smoking hotline phone number is [phone]
Referrals:
CT Transitional Care Nurse [Outside]
(
The Cardiothoracic Transitional Care Nurse will call you to set up a visit in 1-2 days.)
[facility] [Outside] - 06/08/24 1:00 pm
(Cardiac Rehab Orientation appointment is on June 08 at 1pm.
The Cardiac Rehab gym is located on the first floor of the [facility].)
Buzz Coelho MD [Active] - 05/31/24 10:15 am
Heaven Navarrete PA-C [Specified Professional Personl] - 06/16/24 10:00 am (Your appt on 05/20 @ 10am with Heaven Navarrete is CANCELLED)
Mike Mar MD [Family Provider] -
Additional Discharge Medication Instructions: please measure your blood pressure everyday
continue your midodrine until directed by a medical professional
Check your blood pressure before each dose of midodrine. If your blood pressure is higher than 140, Do not take your midodrine.
continue your plavix until directed by medical professional
Prescriptions:
New
cyclobenzaprine 10 mg Tablet
5 mg PO Q8HPRN PRN (Reason: muscle spasm) Qty: 60 0RF
midodrine 5 mg Tablet
5 mg PO BID@0800,1800 Qty: 30 0RF
clopidogrel 75 mg Tablet
75 mg PO DAILY Qty: 90 0RF
ferrous sulfate [FeroSul] 325 mg (65 mg iron) Tablet
325 mg PO DAILY Qty: 0 0RF
tramadol 50 mg Tablet
25 mg PO Q6HPRN PRN (Reason: moderate pain) Qty: 30 0RF
ascorbic acid (vitamin C) [Vitamin C] 500 mg Tablet
500 mg PO DAILY Qty: 0 0RF
pantoprazole 40 mg Tablet,Delayed Release (Dr/Ec)
40 mg PO DAILY Qty: 90 0RF
gabapentin 100 mg Capsule
100 mg PO TID Qty: 30 0RF
Continued
multivitamin Tablet
1 tab PO DAILY
tramadol 50 mg tablet
50 mg PO DAILY PRN (Reason: moderate pain)
Patient Comments:
04/07/2024: last filled 03/31/24, 20 tabs for 20 days from [id number]
B Complex Plus Vitamin C [id number] mg Capsule
1 cap PO DAILY
acetaminophen 500 mg Capsule
1,000 mg PO Q6H PRN (Reason: PAIN)
magnesium
3 gum PO HS
atorvastatin 80 mg tablet
80 mg PO QPM
aspirin [Children's Aspirin] 81 mg tablet,chewable
81 mg PO DAILY
Held
omega [id number]-[id number]-fish oil [Fish Oil] 1,000 mg (120 mg-180 mg) Capsule
1 cap PO DAILY
Hold Instructions: Resume on 05/08/24.
Discontinued
nitroglycerin 0.4 mg tablet, sublingual
0.4 mg sublingual [id number] PRN (Reason: chest pain) Qty: 25 5RF
Patient Comments:
Pt states she has never needed to take the nitro.
turmeric root extract 500 mg Tablet
500 mg PO DAILY
carvedilol 6.25 mg tablet
6.25 mg PO BID
lisinopril 5 mg tablet
5 mg PO DAILY
Brilinta 90 mg tablet
90 mg PO BID
Discharge Orders:
Discharge Patient (As Directed); Ordered 05/01/24
Ordered By: Lanie Cabrera
Care Plan Goals
Care Plan Goals:
Problem: Readiness for enhanced knowledge related to diagnosis and treatment plan
Goal: Understand your diagnosis and treatment plan needs, including medications if applicable.
Instructions: Know your diagnosis, underlying causes and treatment plan options, including medications if applicable. Consult with your health care team to learn about your diagnosis and treatment plan, including medications if applicable.
Discharge Date and Time
Print Language: GABONESE
--- NOTE | 2024-05-01 11:43 | PTCARENOTE ---
2 view x-ray completed. V wire cut with CT MANAGER PURCHASING, Adela. Pt remains SR with HR 70's. BP 108/70 MAP 82. Pulse oximetry 98% on room air. Pt showering at this time.
--- NOTE | 2024-05-01 12:30 | PTCARENOTE ---
Pt completed steps with cardiac rehab. Reviewed discharge instructions with pt and pt's family. Questions addressed. Peripheral IV removed. Pt stable at discharge.
== END 2024-05-01 12:53 | disposition home or self-care (01) | DRG 236 ==
LOC: CVICU 05:08
PROVIDERS: Anesthesiology; Nurse Practitioner; ADMITTING PHYSICIAN Thoracic Surgery (Cardiothoracic Vascular Surgery); CONSULT PHYSICIAN Internal Medicine; FAMILY PHYSICIAN Family Medicine
PROC: 02110Z8 Bypass Coronary Artery, Two Arteries from Right Internal Mammary, Open Approach (ICD-10-PCS; 2024-04-27)
PROC: B24BZZ4 Ultrasonography of Heart with Aorta, Transesophageal (ICD-10-PCS; 2024-04-27)
PROC: 5A1221Z Performance of Cardiac Output, Continuous (ICD-10-PCS; 2024-04-27)
PROC: 02110Z9 Bypass Coronary Artery, Two Arteries from Left Internal Mammary, Open Approach (ICD-10-PCS; 2024-04-27)
PROC: 30233N1 Transfusion of Nonautologous Red Blood Cells into Peripheral Vein, Percutaneous Approach (ICD-10-PCS; 2024-04-29)
DX: I25.10 Atherosclerotic heart disease of native coronary artery without angina pectoris (principal); D62 Acute posthemorrhagic anemia; J98.11 Atelectasis; I47.10 Supraventricular tachycardia, unspecified; E78.00 Pure hypercholesterolemia, unspecified; K21.9 Gastro-esophageal reflux disease without esophagitis; I10 Essential (primary) hypertension; E66.9 Obesity, unspecified; R73.03 Prediabetes; E86.1 Hypovolemia; E87.70 Fluid overload, unspecified; I95.81 Postprocedural hypotension; G89.29 Other chronic pain; M54.2 Cervicalgia; M54.9 Dorsalgia, unspecified; I25.2 Old myocardial infarction; Z68.33 Body mass index [BMI] 33.0-33.9, adult; Z79.82 Long term (current) use of aspirin; Z79.899 Other long term (current) drug therapy; Z86.16 Personal history of COVID-19; Z82.49 Family history of ischemic heart disease and other diseases of the circulatory system; Z95.5 Presence of coronary angioplasty implant and graft
CPT/HCPCS: 36415; 71045; 71046; 80048; 80053; 81003; 81015; 82248; 82330; 82565; 82805; 82947; 82962; 83735; 84132; 84302; 84520; 85014; 85018; 85025; 85027; 85049; 85610; 85730; 86803; 86850; 86900; 86901; 86920; 87070; 93005; 93312; 93320; 93325; 94002; C1713; P9016; P9045

== ENCOUNTER 2024-06-18 10:33 | Outpatient (RCR) | payer OTHER, SELFPAY | END 2024-06-18 23:59 | disposition home or self-care (01) | LOC: CRHB 10:33 | PROVIDERS: Internal Medicine Cardiovascular Disease; ATTENDING PHYSICIAN Internal Medicine Cardiovascular Disease | DX: I25.10 Atherosclerotic heart disease of native coronary artery without angina pectoris (principal); Z95.1 Presence of aortocoronary bypass graft | CPT/HCPCS: 93798; G0422; G0423 ==

== ENCOUNTER 2024-07-19 10:02 | Outpatient (RCR) | payer OTHER, SELFPAY | END 2024-07-19 23:59 | disposition home or self-care (01) | LOC: CRHB 10:02 | PROVIDERS: ATTENDING PHYSICIAN Internal Medicine Cardiovascular Disease | DX: Z95.1 Presence of aortocoronary bypass graft (principal); Z95.5 Presence of coronary angioplasty implant and graft | CPT/HCPCS: G0422; G0423 ==

== ENCOUNTER 2024-08-18 09:36 | Outpatient (RCR) | payer OTHER, SELFPAY | END 2024-08-18 23:59 | disposition home or self-care (01) | LOC: CRHB 09:36 | PROVIDERS: ATTENDING PHYSICIAN Internal Medicine Cardiovascular Disease | DX: I25.10 Atherosclerotic heart disease of native coronary artery without angina pectoris (principal); Z95.1 Presence of aortocoronary bypass graft | CPT/HCPCS: G0422; G0423 ==

== ENCOUNTER 2024-09-01 15:54 | Outpatient (RCR) | payer OTHER, SELFPAY | END 2024-09-01 23:59 | disposition home or self-care (01) | LOC: CRHB 15:54 | PROVIDERS: ATTENDING PHYSICIAN Internal Medicine Cardiovascular Disease | DX: I25.10 Atherosclerotic heart disease of native coronary artery without angina pectoris (principal); Z95.1 Presence of aortocoronary bypass graft; I25.2 Old myocardial infarction | CPT/HCPCS: G0422; G0423 ==

== ENCOUNTER → 2024-10-27 17:22 | Outpatient (REF) | payer OTHER, SELFPAY | LOC: WDC 17:22 | PROVIDERS: ATTENDING PHYSICIAN Physician Assistant Medical | DX: Z12.31 Encounter for screening mammogram for malignant neoplasm of breast (principal) | CPT/HCPCS: 77063; 77067 ==

== ENCOUNTER → 2024-11-19 11:13 | Outpatient (REF) | payer OTHER, SELFPAY | LOC: WDC 11:13 | PROVIDERS: ATTENDING PHYSICIAN Physician Assistant Medical | DX: R92.2 Inconclusive mammogram (principal) | CPT/HCPCS: 76641 ==